=== PATIENT | male | born 1955 | race Caucasian/White ===

== ENCOUNTER → 2018-01-26 06:32 | Outpatient (CLI) | payer OTHER, SELFPAY ==
[2018-01-26 07:21] LABS: Absolute Neutrophil Count 3.6 X10^3/uL (2.0-7.7); Basophil# 0.03 X10^3/uL; Basophil% 0.5 % (0-1); Eosinophil# 0.22 X10^3/uL; Hematocrit 41.8 % (40-54); Hemoglobin 14.1 g/dl (13.0-16.5); Lymphocyte % 20.1 % (19-41); Mean Corp Hgb Conc 33.7 g/gl (32-36); Mean Corpuscular Hgb 31.6 pg (27.0-32.0); Mean Corpuscular Volume 93.7 fL (80-94); Monocyte# 0.56 X10^3/uL; Monocyte% 10.2 % (0-10); Neutrophil # 3.55 X10^3/uL (2.7-7.7); Platelet Count 212 K/mm3 (150-450); RBC Distribution Width CV 13.3 % (11.6-14.6); RBC Distribution Width SD 44.1 fl (35.1-43.9); Red Blood Count 4.46 M/mm3 (4.6-6.2); White Blood Count 5.5 K/mm3 (4.4-11.0)
[2018-01-26 07:23] LABS: POSITIVE COUNT NO; POSITIVE DIFFERENTIAL NO; POSITIVE MORPHOLOGY NO
[2018-01-26 07:45] LABS: Hemoglobin A1c 5.6 % (4.2-6.3)
[2018-01-26 08:00] LABS: AST(SGOT) 35 U/L (15-37); Alanine Aminotransfer ALT/SGPT 50 U/L (16-61); Albumin, Serum 3.7 g/dL (3.2-5.0); Alkaline Phosphatase 40 U/L (45-117); Anion Gap 8 (5-15); BUN 17 mg/dL (7-18); BUN/Creat Ratio 17.8 RATIO (10-20); Chloride 103 mmol/L (98-107); Cholesterol 192 mg/dL (200); Creatinine, Serum 0.96 mg/dL (0.70-1.30); EST Glomerular Filtration Rate 85 mL/min (>60); Est Glom Filt Rate - Afr Amer 103 mL/min (>60); Globulin 3.6 g/dL (2.2-4.2); Glucose 118 mg/dL (74-106); High Density Lipoprotein 45 mg/dL; Magnesium 2.4 mg/dL (1.6-2.6); Potassium 4.5 mmol/L (3.5-5.1); Protein, Total 7.3 g/dL (6.4-8.2); Sodium Level 141 mmol/L (136-145); Thyroid Stim Hormone (TSH) 3.65 uIU/mL (0.358-3.74); Triglycerides 251 mg/dL; Very Low Density Lipoprotein 50 mg/dL (5-40)
== END ==
PROVIDERS: Family Provider Family Medicine; PCP Family Medicine; Visit Provider Family Medicine
DX: R53.83 Other fatigue (principal); M79.7 Fibromyalgia; G43.109 Migraine with aura, not intractable, without status migrainosus; R73.9 Hyperglycemia, unspecified
CPT/HCPCS: 36415; 80053; 80061; 83036; 83735; 84403; 84443; 85025

== ENCOUNTER 2018-07-03 08:26 | Day surgery (SDC) | payer OTHER, SELFPAY ==
[2018-07-03] VITALS (7 sets, daily range): BP systolic 93–118; BP diastolic 63–76; PULSE 65–99; RESP 16; TEMP 36.4–36.8; O2SAT 92–98; BMI 27.7
[2018-07-03] MEDS: MethylPREDNISolone Acetate 80 MG/ML Vial (09:48)
[2018-07-03] MEDS: Bupivacaine 0.25% 30 ML Vial (09:49)
--- NOTE | 2018-07-03 09:50 | RAD_ITS ---
STUDY: Fluoroscopic intraoperative study- CERVICAL SPINE REASON FOR EXAM: Male, 63 years old. Fluoroscopic intraoperative study cervical spine TECHNIQUE: Fluoroscopic view(s) of the cervical spine were obtained. COMPARISON: None FINDINGS: 4 fluoroscopic images were obtained with needle markers along the left side of the cervical spine. RAD/Cerv Spine 4 or 5 Views IMPRESSION: Intraoperative fluoroscopic imaging. Fluoroscopy time used was not provided. Electronically Signed: Hamida Burgos MD at 2:30 EST Tel , Service support ,
--- NOTE | 2018-07-03 10:01 | PCM.OPRPT ---
Problem List (1) Arthropathy of cervical facet joint Status: Chronic (2) Cervical spondylosis Status: Chronic (3) Degenerative cervical disc Status: Chronic Report of Operation Date of Procedure: 07/03/18 Pre-Operative Diagnosis: Cervical spondylosis, cervical degenerative disc disease, cervical facet arthropathy Post-Operative Diagnosis: Cervical spondylosis, cervical degenerative disc disease, cervical facet arthropathy Surgery/Procedure Performed:: Right-sided cervical facet steroid injection C4, C5, C6,C7 Description of Surgical Findings:: PROCEDURE: Right-sided cervical facet steroid injection C4, C5, C6, C7 PREOPERATIVE DIAGNOSES: Cervical spondylosis, cervical degenerative disc disease, and cervical facet arthropathy POSTOPERATIVE DIAGNOSES: Cervical spondylosis, cervical degenerative disc disease, and cervical facet arthropathy ANESTHESIA: MAC COMPLICATIONS: None BLOOD LOSS: Minimal PROCEDURE IN DETAIL: History and physical today was reviewed. Risks and benefits of the procedure were explained. The patient understood, agreed to our procedure, and informed consent was obtained. IV inserted per routine protocol. The patient was taken to the operating room, placed in a prone position with a pillow positioned underneath the chest. The neck area was prepped and draped in a sterile fashion using iodine x3. Under fluoroscopy guidance, on AP view, C4 through C7 vertebral bodies were visualized. Under direct visualization with fluoroscopy at approximately 15-degree angle, starting on the right C4, ending on the right C7, passing through the C5-C6 using a 25-gauge 3-1/2 inch spinal needle, the needle was passed through the skin. The tip of the needle was maneuvered and directed towards the apophyseal junction of each corresponding vertebra. Once the tip of the needle was at the vicinity of the medial branch and in contact with the bone, the needle was redirected more lateral towards the medial branch. Once in contact with the medial branch, the stylet of each needle was then removed. After negative aspiration of blood with CSF and confirmation of AP as well as oblique view, a total of 3 mL of preservative-free 0.25% Marcaine with 80 mg Depo-Medrol was injected in divided doses between those 4 levels. The needles were then removed intact. The patient experienced no signs or symptoms of intrathecal, intravascular injection. The patient experienced no paraesthesia. The procedure was completed without any apparent difficulty, any complication. The patient appeared to tolerate well. ASSESSMENT AND PLAN: This is a 63-year-old Male with cervical spondylosis, cervical degenerative disc disease, and cervical facet arthropathy, status post right-sided cervical facet steroid injection C4 through C7. The patient will continue his current medications. The patient will follow up in approximately 2 weeks fo reevaluation.
== END 2018-07-03 10:40 | disposition home or self-care (01) ==
LOC: SDC 08:26 → AC 08:29
PROVIDERS: Family Provider Family Medicine; PCP Family Medicine; Referring Provider Anesthesiology Pain Medicine; Visit Provider Anesthesiology Pain Medicine
PROC: 3E0U3BZ Introduction of Anesthetic Agent into Joints, Percutaneous Approach (ICD-10-PCS; CPT 64490; principal; 2018-07-03 09:45)
DX: M50.10 Cervical disc disorder with radiculopathy, unspecified cervical region (principal); M47.22 Other spondylosis with radiculopathy, cervical region; F41.9 Anxiety disorder, unspecified; I34.1 Nonrheumatic mitral (valve) prolapse; Z79.82 Long term (current) use of aspirin; Z79.899 Other long term (current) drug therapy
CPT/HCPCS: 64490; 64491; 64492; 72050; J7120

== ENCOUNTER → 2018-10-30 | Outpatient (CLI) | payer OTHER, SELFPAY ==
[2018-07-03 09:02] VITALS: BMI 27.7
[2018-10-30 08:17] LABS: Cholesterol 165 mg/dL (200); High Density Lipoprotein 43 mg/dL; Triglycerides 188 mg/dL; Very Low Density Lipoprotein 38 mg/dL (5-40)
[2018-10-30 11:54] LABS: Hemoglobin A1c 5.6 % (4.2-6.3)
== END | disposition home or self-care (01) ==
LOC: LAB.FUTURE 06:55
PROVIDERS: Family Provider Family Medicine; PCP Family Medicine; Referring Provider Physician Assistant; Visit Provider Physician Assistant
DX: E78.1 Pure hyperglyceridemia (principal); R73.9 Hyperglycemia, unspecified
CPT/HCPCS: 36415; 80061; 83036

== ENCOUNTER → 2019-03-02 | Outpatient (CLI) | payer OTHER, SELFPAY ==
[2018-07-03 09:02] VITALS: BMI 27.7
--- NOTE | 2019-03-02 10:46 | ECHOD_ITS ---
Reason For Study: s/p MV Repair Procedure This was a 2D Doppler, Color Flow transthoracic echocardiogram. The exam was of adequate technical quality. Exam performed in department. Left Ventricle Severely dilated left ventricle. D shaped septum in systole and diastole. Moderately severe global left ventricular systolic dysfunction. The estimated ejection fraction is 35 %. Unable to assess diastolic dysfunction. Right Ventricle Mildly dilated right ventricle. Mild global right ventricular systolic dysfunction. Atria The left atrium is severely enlarged. The right atrium is mildly enlarged. No doppler evidence for ASD. Mitral Valve Anterior leaflet diffuse mitral valve thickening. Mitral valve doming/Hockey Sticking. Moderate (2+) eccentric mitral valve insufficiency. An annuloplasty ring is noted in the mitral position. Tricuspid Valve Normal tricuspid valve. Mild to moderate (1-2+) eccentric tricuspid valve insufficiency. Right ventricular systolic pressure estimated to be 51 mmHg. Aortic Valve Trisinus/trileaflet aortic valve. Normal aortic valve. Mild (1+) aortic valve insufficiency. Pulmonic Valve The pulmonic valve is not well visualized. Trivial pulmonic valve insufficiency. Great Vessels Normal sized aortic root. Pericardium/Pleural No pericardial effusion. MMode/2D Measurements & Calculations LVIDd: 7.3 cm IVSd: 1.0 cm Ao root diam: 3.6 cm LVIDs: 6.1 cm LVPWd: 1.2 cm LA dimension: 6.2 cm RVDd: 4.7 cm FS: 16.0 % LAV(MOD-bp): 175.1 ml LVAd ap4: 45.5 cm2 SV(MOD-sp4): 72.6 ml LAV(MOD-bp) Indexed: 84.9 ml/m2 EDV(MOD-sp4): 202.8 ml LAV(MOD-sp2): 183.0 ml EDV(sp4-el): 212.6 ml LAV(MOD-sp4): 164.4 ml LVAs ap4: 34.6 cm2 ESV(MOD-sp4): 130.2 ml ESV(sp4-el): 133.2 ml EF(MOD-sp4): 35.8 % EF(sp4-el): 37.3 % SV(sp4-el): 79.3 ml LA A4 area: 39.6 cm2 RA A4 area: 22.4 cm2 Doppler Measurements & Calculations MV E max jeet: 172.4 cm/sec MV V2 max: 240.4 cm/sec MV P1/2t max jeet: 240.4 cm/sec MV max P.1 mmHg MV P1/2t: 65.7 msec MV V2 mean: 134.5 cm/sec MV mean P.8 mmHg MV dec slope: 1072 cm/sec2 MV V2 VTI: 45.8 cm MVA(P1/2t): 3.3 cm2 Ao V2 max: 113.6 cm/sec AI max jeet: 414.0 cm/sec LV V1 max: 108.4 cm/sec Ao max P.2 mmHg AI max P.7 mmHg LV V1 max P.7 mmHg AI dec slope: 221.0 cm/sec2 AI P1/2t: 548.7 msec MR max jeet: 403.2 cm/sec PA V2 max: 93.6 cm/sec TR max jeet: 326.7 cm/sec MR max P.0 mmHg TR max P.7 mmHg MR mean jeet: 324.0 cm/sec MR mean P.9 mmHg MR VTI: 109.2 cm Interpretation Summary Severely dilated left ventricle. D shaped septum in systole and diastole. Moderately severe global left ventricular systolic dysfunction. The estimated ejection fraction is 35 %. Mildly dilated right ventricle. Mild global right ventricular systolic dysfunction. The left atrium is severely enlarged. The right atrium is mildly enlarged. An annuloplasty ring is noted in the mitral position. Anterior leaflet diffuse mitral valve thickening. Mitral valve doming/Hockey Sticking Moderate (2+) eccentric mitral valve insufficiency. Mild to moderate (1-2+) eccentric tricuspid valve insufficiency. Mild (1+) aortic valve insufficiency. Trivial pulmonic valve insufficiency. Right ventricular systolic pressure estimated to be 51 mmHg. Unable to assess diastolic dysfunction. Ordering Physician: SAUD TARIQ Referring Physician: Wei Scruggs Performed By: Carlos Eduardo Childers RCS
== END | disposition home or self-care (01) ==
LOC: CVS 10:44
PROVIDERS: Family Provider Family Medicine; PCP Family Medicine
DX: Z98.890 Other specified postprocedural states (principal)
CPT/HCPCS: 93306

== ENCOUNTER → 2019-07-14 07:04 | Outpatient (CLI) | payer OTHER, SELFPAY ==
[2018-07-03 09:02] VITALS: BMI 27.7
[2019-07-14 08:05] LABS: ALB/GLOB Ratio 1.1 RATIO (0.9-2.4); AST(SGOT) 33 U/L (15-37); Alanine Aminotransfer ALT/SGPT 44 U/L (16-61); Albumin, Serum 3.9 g/dL (3.2-5.0); Alkaline Phosphatase 35 U/L (45-117); Anion Gap 5 (5-15); BUN 16 mg/dL (7-18); BUN/Creat Ratio 17.2 RATIO (10-20); Calcium,Total 8.8 mg/dL (8.5-10.1); Chloride 106 mmol/L (98-107); Cholesterol 174 mg/dL (200); Creatinine, Serum 0.93 mg/dL (0.70-1.30); EST Glomerular Filtration Rate 88 mL/min (>60); Est Glom Filt Rate - Afr Amer 106 mL/min (>60); Globulin 3.6 g/dL (2.2-4.2); Glucose 115 mg/dL (74-106); High Density Lipoprotein 44 mg/dL; Potassium 4.4 mmol/L (3.5-5.1); Protein, Total 7.5 g/dL (6.4-8.2); Sodium Level 140 mmol/L (136-145); Triglycerides 136 mg/dL; Very Low Density Lipoprotein 27 mg/dL (5-40)
[2019-07-14 08:58] LABS: Hemoglobin A1c 5.5 % (4.2-6.3)
== END ==
PROVIDERS: PCP Family Medicine; Referring Provider Physician Assistant; Visit Provider Physician Assistant
DX: E78.1 Pure hyperglyceridemia (principal); I50.22 Chronic systolic (congestive) heart failure; R73.9 Hyperglycemia, unspecified; Z79.899 Other long term (current) drug therapy
CPT/HCPCS: 36415; 80053; 80061; 83036; 83880

== ENCOUNTER → 2020-11-05 07:08 | Outpatient (CLI) | payer OTHER, SELFPAY ==
[2018-07-03 09:02] VITALS: BMI 27.7
[2020-11-05 08:24] LABS: Absolute Lymphocyte Count 1.12 X10^3/uL (0.83-4.51); Absolute Neutrophil Count 3.1 X10^3/uL (2.0-7.7); Basophil# 0.05 X10^3/uL; Eosinophil# 0.29 X10^3/uL; Eosinophils% 5.7 % (0-5); Hematocrit 44.2 % (40-54); Hemoglobin 14.9 g/dL (13.0-16.5); Lymphocyte # 1.12 X10^3/ul (0.83-4.51); Lymphocyte % 22.2 % (19-41); Mean Corp Hgb Conc 33.7 g/dL (32-36); Mean Corpuscular Hgb 31.6 pg (27.0-32.0); Mean Corpuscular Volume 93.6 fL (80-94); Mean Platelet Vol. 9.8 fl (6.2-12.0); Monocyte% 9.9 % (0-10); NRBC Flagged by Analyzer 0 % (0-5); Neutrophil # 3.07 X10^3/uL (2.7-7.7); Neutrophil % 60.8 % (47-70); Platelet Count 251 K/mm3 (150-450); RBC Distribution Width CV 12.7 % (11.6-14.6); RBC Distribution Width SD 43.6 fl (35.1-43.9); Red Blood Count 4.72 M/mm3 (4.6-6.2); White Blood Count 5.1 K/mm3 (4.4-11.0)
[2020-11-05 08:43] LABS: Hemoglobin A1c 5.5 % (3.8-5.6)
[2020-11-05 09:18] LABS: ALB/GLOB Ratio 1.1 RATIO (0.9-2.4); AST(SGOT) 33 U/L (15-37); Alanine Aminotransfer ALT/SGPT 60 U/L (16-61); Albumin, Serum 3.9 g/dL (3.2-5.0); Alkaline Phosphatase 46 U/L (45-117); Anion Gap 4 (5-15); BUN 16 mg/dL (7-18); BUN/Creat Ratio 19.7 RATIO (10-20); Chloride 105 mmol/L (98-107); Cholesterol 194 mg/dL (200); Creatinine, Serum 0.81 mg/dL (0.70-1.30); EST Glomerular Filtration Rate 102 mL/min (>60); Est Glom Filt Rate - Afr Amer 123 mL/min (>60); Globulin 3.5 g/dL (2.2-4.2); Glucose 106 mg/dL (74-106); High Density Lipoprotein 47 mg/dL; Magnesium 2.6 mg/dL (1.6-2.6); Protein, Total 7.4 g/dL (6.4-8.2); Sodium Level 138 mmol/L (136-145); Triglycerides 189 mg/dL; Very Low Density Lipoprotein 38 mg/dL (5-40)
== END ==
PROVIDERS: PCP Family Medicine; Referring Provider Physician Assistant; Visit Provider Physician Assistant
DX: I42.0 Dilated cardiomyopathy (principal); T82.03XD Leakage of heart valve prosthesis, subsequent encounter; R73.9 Hyperglycemia, unspecified; R78.1 Finding of opiate drug in blood; I50.22 Chronic systolic (congestive) heart failure; Z79.899 Other long term (current) drug therapy
CPT/HCPCS: 36415; 80053; 80061; 83036; 83735; 85025

== ENCOUNTER → 2021-01-01 07:47 | Outpatient (CLI) | payer OTHER, SELFPAY ==
[2018-07-03 09:02] VITALS: BMI 27.7
--- NOTE | 2021-01-01 08:11 | RAD_ITS ---
STUDY: X-RAY - LEFT ANKLE REASON FOR EXAM: Male, 65 years old. Ankle pain. TECHNIQUE: 3 view(s) of the ankle. COMPARISON: None. FINDINGS: Osteopenia. Mild arthrosis of the tibiotalar and subtalar joints. Mild arthrosis of the midfoot. The soft tissue structures are unremarkable. RAD/Ankle min 3 Views IMPRESSION: Osteopenia with mild osteoarthritic changes. No acute abnormality, erosive changes or periostitis. Electronically Signed: Irineo Frank MD at 13:13 EDT , Service support ,
--- NOTE | 2021-01-01 08:12 | RAD_ITS ---
STUDY: X-RAY - LEFT FOOT CLINICAL: Male, 65 years old. Foot pain. TECHNIQUE: 3 view(s) of the foot. COMPARISON: None. FINDINGS: Osteopenia. Mild arthrosis of the tibiotalar and subtalar joints. Mild arthrosis of the midfoot. Mild arthrosis of the MTP and IV joints. The soft tissue structures are unremarkable. RAD/Foot min 3 Views IMPRESSION: Osteopenia with osteoarthritic changes as described. No acute abnormality, erosive changes or periostitis. Electronically Signed: Irineo Frank MD at 13:12 EDT , Service support ,
--- NOTE | 2021-01-01 08:12 | RAD_ITS ---
STUDY: X-RAY - LUMBOSACRAL SPINE REASON FOR EXAM: Male, 65 years old. Back pain. TECHNIQUE: 7 view(s) of the lumbosacral spine including bending views were obtained. COMPARISON: None FINDINGS: Osteopenia. Normal lumbar lordosis. There is no substantial scoliosis. There is normal alignment of the vertebrae. 7 mm of anterolisthesis of L4 on L5. Limited flexion, normal extension and no abnormal motion. Diffuse facet sclerosis. Diffuse mild intervertebral disc space narrowing with small osteophytes at L3-4 and L5-S1. Osteoarthrosis of the sacroiliac joints. Normal visualized soft tissue structures. RAD/L/S Spine Comp/w Bending Views IMPRESSION: Osteopenia with mild diffuse lumbar spondylosis. No acute abnormality, evidence of erosive changes or evidence of fusion. Electronically Signed: Irineo Frank MD at 14:02 EDT , Service support ,
[2021-01-01 09:26] LABS: Erythrocyte Sedimentation Rate 17 mm/hr (0-20)
[2021-01-01 09:28] LABS: Absolute Lymphocyte Count 0.83 X10^3/uL (0.83-4.51); Absolute Neutrophil Count 7.4 X10^3/uL (2.0-7.7); Basophil# 0.05 X10^3/uL; Basophil% 0.5 % (0-1); Eosinophil# 0.22 X10^3/uL; Eosinophils% 2.4 % (0-5); Hematocrit 41.3 % (40-54); Hemoglobin 13.4 g/dL (13.0-16.5); Lymphocyte # 0.83 X10^3/ul (0.83-4.51); Lymphocyte % 9.1 % (19-41); Mean Corp Hgb Conc 32.4 g/dL (32-36); Mean Corpuscular Hgb 30.2 pg (27.0-32.0); Mean Corpuscular Volume 93.2 fL (80-94); Mean Platelet Vol. 9.6 fl (6.2-12.0); Monocyte# 0.55 X10^3/uL; NRBC Flagged by Analyzer 0 % (0-5); Neutrophil # 7.44 X10^3/uL (2.7-7.7); Neutrophil % 81.2 % (47-70); Platelet Count 367 K/mm3 (150-450); RBC Distribution Width CV 12.5 % (11.6-14.6); RBC Distribution Width SD 43.3 fl (35.1-43.9); Red Blood Count 4.43 M/mm3 (4.6-6.2); White Blood Count 9.2 K/mm3 (4.4-11.0)
[2021-01-01 09:50] LABS: ALB/GLOB Ratio 0.8 RATIO (0.9-2.4); AST(SGOT) 16 U/L (15-37); Alanine Aminotransfer ALT/SGPT 26 U/L (16-61); Albumin, Serum 3.4 g/dL (3.2-5.0); Alkaline Phosphatase 56 U/L (45-117); Anion Gap 8 (5-15); BUN 12 mg/dL (7-18); BUN/Creat Ratio 17.5 RATIO (10-20); Calcium,Total 8.4 mg/dL (8.5-10.1); Chloride 104 mmol/L (98-107); Creatinine, Serum 0.69 mg/dL (0.70-1.30); EST Glomerular Filtration Rate 124 mL/min (>60); Est Glom Filt Rate - Afr Amer 150 mL/min (>60); Globulin 4.4 g/dL (2.2-4.2); Glucose 104 mg/dL (74-106); Potassium 4.2 mmol/L (3.5-5.1); Protein, Total 7.8 g/dL (6.4-8.2); Rheumatoid Factor < 10.0 IU/mL (<15); Sodium Level 137 mmol/L (136-145); Thyroid Stim Hormone (TSH) 2.54 uIU/mL (0.358-3.74); Uric Acid 5.4 mg/dL (3.5-7.2)
== END ==
LOC: RAD.FUTURE 07:53 → LAB 07:57
PROVIDERS: PCP Family Medicine; Referring Provider Student in an Organized Health Care Education/Training Program; Visit Provider Student in an Organized Health Care Education/Training Program
DX: M79.672 Pain in left foot (principal); R22.42 Localized swelling, mass and lump, left lower limb
CPT/HCPCS: 36415; 72114; 73610; 73630; 80053; 84443; 84550; 85025; 85652; 86140; 86431

== ENCOUNTER 2021-01-21 08:00 | Outpatient (RCR) | payer OTHER, SELFPAY ==
[2018-07-03 09:02] VITALS: BMI 27.7
--- NOTE | 2021-01-06 15:16 | HP.PTEVAL ---
Patient's Visit Information RADHA IBRAHIM is a 65 year old M referred to Physical Therapy by Dr. Mauro Vargas MD with a diagnosis of CHRONIC BACK PAIN. Date of Evaluation: 01/06/21 Physical Therapist: Bird Bosch PT, Cert MDT, OCS - Visit Plan Frequency: 2x /Week Duration: 4 Weeks Plan: PRECAUTION: CABG VALVE REPLACEMENT SURGERY AND RECONSTRUCTION. PT INERVETION DLS ,POSTURAL EX'S AND LUMBAR ROM AND FUNCTIONAL STRENGTHENING - Subjective This 65 y/o male presents alexx physical therapy with chronic back pain. Patient has had lumbar pain right leg foot with paresthesia in November ~ 6weeks then symptoms started in left leg. But ,currently pain has getting better .Seen DR Juarez did x-rays DDD . Patient not taking any MEDs. Patient has h/o sciatica . Aggravating factors increase activity . Alleviating factors rest. Patient has comorbities with CABAG valve repair ,2003 and this past Mar 04 2020 replaced valve . Denies paresthesia/tingling has resolved . Coughing/sneezing -.Bowel/bladder-. Sleeping better at night. VOCATION: retired. SOCIAL: - Objective POSTURE: mild forward posture. GAIT: reciprocal pattern. SYMMTRIES: align. PALAPTION: unremarkable. MMT: quads/hams/hip 4/5,ankle 5/5. LUMBR ROM: flexion WFL, extension min loss, side glides min loss. FLEXABLITY: hams min tight - Special Tests L/S Slump test left side: Negative L/S Slump test right side: Negative L/S Left Straight Leg Raise: Negative L/S Right Straight Leg Raise: Negative Lumbar Standing: Flexion - Mechanical Response: No effect Lumbar Standing: Flexion - Symptoms During Testing: No effect Lumbar Standing: Flexion - Symptoms After Testing: No effect Lumbar Standing: Extension - Mechanical Response: No effect Lumbar Standing: Extension - Symptoms During Testing: No effect Lumbar Standing: Extension - Symptoms After Testing: No effect Lumbar Standing: Right Side Glides - Mechanical Response: No effect Lumbar Standing: Right Side [place] - Symptoms During Testing: No effect Lumbar Standing: Right Side [place] - Symptoms After Testing: No effect Lumbar Standing: Left Side [place] - Mechanical Response: No effect Lumbar Standing: Left Side [place] - Symptoms During Testing: No effect Lumbar Standing: Left Side [place] - Symptoms After Testing: No effect - Balance/Special Test Scores Oswestry Low Back Score: 8 - Goals Goal 1:: I with HEP Goal Time Frame: 4-6 Weeks Goal 2:: Improve posture/body mechanics for ADLS' Goal Time Frame: 4-6 Weeks Goal 3:: Decrease lumbar pain by 80% or > to improve QOL and function Goal Time Frame: 4-6 Weeks Goal 4:: Patient improve lumbar ROM for function of recovery Goal Time Frame: 4-6 Weeks Goal 5:: Patient improve back owestry score by 5 points or > to improve function Goal Time Frame: 4-6 Weeks - Rehabilitation Potential Physical Therapy Diagnosis: This patient had lumbar pain with symptoms in legs which has been resolving along with core weakness and deconditioned along with comorbties with heart thus will benefit skilled PT Rehabilitation Potential: Good - Anticipated Interventions Patient/Client Instruction: Educate patient on: Condition, Plan of Care For the Purpose of:: To decrease pain, To increase ROM, To improve muscle performance and motor function, To improve ability to perform ADL's, To increase tolerance to activity/condition/position, To improve performance and independence with ADL's, To improve ability of physical actions for home/community/work/leisure, To improve health of tissue, To decrease soft tissue restriction, To increase flexibility/ROM, To reduce risk of recurrence Therapeutic Exercise to Include: Strength training, Coordination, Postural training, Flexibilty training, Active ROM, Dynamic Lumbar Stabilization For the Purpose of:: To decrease pain, To improve muscle performance and motor function, To improve ability to perform ADL's, To increase tolerance to activity/condition/position, To improve performance and independence with ADL's, To improve ability of physical actions for home/community/work/leisure, To increase flexibility/ROM, To reduce risk of recurrence Thank you for the opportunity to evaluate your patient. For Medicare and Medicare HMO plans, please review the plan of care and approve it. It will need to be FAXED BACK to us at [phone] for Medicare purposes. For Medicare only, by signing this I certify the plan of care. Please let me know if there are questions or concerns regarding this plan of care. Physician Signature: Date:
--- NOTE | 2021-03-09 16:56 | HP.PTDCSUM ---
It has been my pleasure to treat RADHA IBRAHIM referred by Dr. Mauro Vargas MD, with the diagnosis of CHRONIC BACK PAIN for a total of 3 visit(s). Discharge Date: 01/21/21 Please see the following information for a summary of their discharge status. Subjective: Doing well no pain % Improvement: 80 Objective/Function: POSTURE: WFL. GAIT: RECIPROCAL PATTERN. PALAPTION: UNREMARBALE. MMT: 5/5. LUMBAR ROM : WNL Goal 1:: I with HEP Goal Progress: Goal Met Goal 2:: Improve posture/body mechanics for ADLS' Goal Progress: Goal Met Goal 3:: Decrease lumbar pain by 80% or > to improve QOL and function Goal Progress: Goal Met Goal 4:: Patient improve lumbar ROM for function of recovery Goal Progress: Goal Met Goal 5:: Patient improve back owestry score by 5 points or > to improve function Goal Progress: Goal Met Plan: D/C Discharge Comments: HEP If there are questions or concerns regarding this patient's physical therapy, please feel free to call me at [phone]. Thank you for the referral of this patient. Sincerely, Bird Bosch, PT, Cert MDT, OCS Balance/Gait/Functional tests - Balance/Special Test Scores Oswestry Low Back Score: 0
== END 2021-01-21 19:00 | disposition home or self-care (01) ==
LOC: PT 08:00
PROVIDERS: PCP Family Medicine; Referring Provider Anesthesiology Pain Medicine; Visit Provider Anesthesiology Pain Medicine
DX: M54.9 Dorsalgia, unspecified (principal); G89.29 Other chronic pain
CPT/HCPCS: 97110; 97162

== ENCOUNTER → 2021-02-09 07:05 | Outpatient (CLI) | payer OTHER, SELFPAY ==
[2021-02-09 07:25] LABS: Absolute Lymphocyte Count 0.75 X10^3/uL (0.83-4.51); Absolute Neutrophil Count 7.8 X10^3/uL (2.0-7.7); Basophil# 0.05 X10^3/uL; Basophil% 0.5 % (0-1); Eosinophil# 0.28 X10^3/uL; Eosinophils% 2.9 % (0-5); Hematocrit 41.9 % (40-54); Hemoglobin 13.4 g/dL (13.0-16.5); Lymphocyte # 0.75 X10^3/ul (0.83-4.51); Lymphocyte % 7.9 % (19-41); Mean Corpuscular Hgb 30.3 pg (27.0-32.0); Mean Corpuscular Volume 94.8 fL (80-94); Mean Platelet Vol. 9.2 fl (6.2-12.0); Monocyte# 0.61 X10^3/uL; Monocyte% 6.4 % (0-10); NRBC Flagged by Analyzer 0 % (0-5); Neutrophil # 7.78 X10^3/uL (2.7-7.7); Neutrophil % 81.9 % (47-70); Platelet Count 301 K/mm3 (150-450); RBC Distribution Width CV 13.6 % (11.6-14.6); Red Blood Count 4.42 M/mm3 (4.6-6.2); White Blood Count 9.5 K/mm3 (4.4-11.0)
[2021-02-09 08:08] LABS: ALB/GLOB Ratio 0.7 RATIO (0.9-2.4); AST(SGOT) 15 U/L (15-37); Alanine Aminotransfer ALT/SGPT 18 U/L (16-61); Alkaline Phosphatase 51 U/L (45-117); Anion Gap 6 (5-15); BUN 15 mg/dL (7-18); BUN/Creat Ratio 18.8 RATIO (10-20); CRP 7.24 mg/L (0.0-3.0); Calcium,Total 8.1 mg/dL (8.5-10.1); Chloride 106 mmol/L (98-107); EST Glomerular Filtration Rate 103 mL/min (>60); Est Glom Filt Rate - Afr Amer 125 mL/min (>60); Globulin 4.2 g/dL (2.2-4.2); Glucose 125 mg/dL (74-106); Potassium 4.3 mmol/L (3.5-5.1); Protein, Total 7.2 g/dL (6.4-8.2); Sodium Level 140 mmol/L (136-145)
== END ==
PROVIDERS: PCP Family Medicine; Referring Provider Student in an Organized Health Care Education/Training Program; Visit Provider Student in an Organized Health Care Education/Training Program
DX: E79.0 Hyperuricemia without signs of inflammatory arthritis and tophaceous disease (principal)
CPT/HCPCS: 36415; 80053; 84550; 85025; 86140

== ENCOUNTER → 2022-03-19 | Outpatient (CLI) | payer MEDICARE, BC, SELFPAY ==
[2022-03-19 07:55] LABS: Hematocrit 41.5 % (40-54); Hemoglobin 14.4 g/dL (13.0-16.5); Mean Corp Hgb Conc 34.7 g/dL (32-36); Mean Corpuscular Hgb 31.9 pg (27.0-32.0); Mean Corpuscular Volume 91.8 fL (80-94); Mean Platelet Vol. 9.4 fl (6.2-12.0); Platelet Count 244 K/mm3 (150-450); RBC Distribution Width CV 12.7 % (11.6-14.6); RBC Distribution Width SD 42.1 fl (35.1-43.9); Red Blood Count 4.52 M/mm3 (4.6-6.2)
[2022-03-19 08:29] LABS: ALB/GLOB Ratio 1.1 RATIO (0.9-2.4); AST(SGOT) 22 U/L (15-37); Alanine Aminotransfer ALT/SGPT 41 U/L (16-61); Albumin, Serum 3.9 g/dL (3.2-5.0); Alkaline Phosphatase 41 U/L (45-117); Anion Gap 6 (5-15); BUN 16 mg/dL (7-18); BUN/Creat Ratio 20.8 RATIO (10-20); Calcium,Total 9.3 mg/dL (8.5-10.1); Chloride 106 mmol/L (98-107); Cholesterol 192 mg/dL (200); Creatinine, Serum 0.77 mg/dL (0.70-1.30); EST Glomerular Filtration Rate 108 mL/min (>60); Est Glom Filt Rate - Afr Amer 131 mL/min (>60); Globulin 3.4 g/dL (2.2-4.2); Glucose 127 mg/dL (74-106); High Density Lipoprotein 50 mg/dL; Magnesium 2.5 mg/dL (1.6-2.6); Potassium 4.2 mmol/L (3.5-5.1); Protein, Total 7.3 g/dL (6.4-8.2); Sodium Level 139 mmol/L (136-145); Triglycerides 131 mg/dL; Uric Acid 6.4 mg/dL (3.5-7.2); Very Low Density Lipoprotein 26 mg/dL (5-40)
[2022-03-23 09:00] LABS: Hemoglobin A1c 5.6 % (3.8-5.6)
== END | disposition home or self-care (01) ==
LOC: LAB 07:27
PROVIDERS: PCP Family Medicine; Referring Provider Physician Assistant; Visit Provider Physician Assistant
DX: K21.9 Gastro-esophageal reflux disease without esophagitis (principal); I42.0 Dilated cardiomyopathy; I48.0 Paroxysmal atrial fibrillation; M79.675 Pain in left toe(s); E78.1 Pure hyperglyceridemia; R73.9 Hyperglycemia, unspecified; F41.1 Generalized anxiety disorder; Z79.899 Other long term (current) drug therapy
CPT/HCPCS: 36415; 80053; 80061; 83036; 83735; 84550; 85027

== ENCOUNTER → 2022-05-11 | Outpatient (CLI) | payer MEDICARE, BC, SELFPAY ==
[2022-05-11 07:47] LABS: Hemoglobin A1c 5.7 % (3.8-5.6)
[2022-05-11 07:56] LABS: CRP < 2.90 mg/L (0.0-3.0); PSA,Total - Annual Screen 1.65 ng/mL (0.00-4.00)
[2022-05-11 08:25] LABS: Insulin 15.4 mU/L (2.6-37.6)
[2022-05-12 11:58] LABS: C-Peptide 5.3 ng/mL (1.1-4.4)
== END | disposition home or self-care (01) ==
PROVIDERS: PCP Family Medicine; Referring Provider Physician Assistant; Visit Provider Physician Assistant
DX: Z12.5 Encounter for screening for malignant neoplasm of prostate (principal); E78.1 Pure hyperglyceridemia; R73.9 Hyperglycemia, unspecified
CPT/HCPCS: 36415; 83036; 83525; 84153; 84681; 86140; G0103

== ENCOUNTER → 2022-07-07 | Outpatient (CLI) | payer MEDICARE, BC, SELFPAY ==
--- NOTE | 2022-07-07 07:55 | RAD_ITS ---
STUDY: X-RAY - RIGHT WRIST REASON FOR EXAM: Male, 67 years old. Pain and swelling. TECHNIQUE: 3 view(s) of the wrist were obtained. COMPARISON: None. FINDINGS: Osteopenia. Mild arthrosis of the radiocarpal articulation. Mild arthrosis of the distal radioulnar articulation. Separate ossification center for the ulnar styloid versus remote trauma. Moderate arthrosis of the radial carpal row. Moderate arthrosis of the first CMC joint. The soft tissue structures are unremarkable. RAD/Wrist min 3 Views IMPRESSION: Osteopenia with osteoarthritic changes as described. No acute abnormality, chondrocalcinosis or erosive changes. Electronically Signed: Irineo Frank, at 10:12 EST ,
[2022-07-07 08:13] LABS: Erythrocyte Sedimentation Rate 4 mm/hr (0-20)
[2022-07-07 08:16] LABS: Absolute Lymphocyte Count 1.17 X10^3/uL (0.83-4.51); Absolute Neutrophil Count 4.2 X10^3/uL (2.0-7.7); Basophil# 0.05 X10^3/uL; Basophil% 0.8 % (0-1); Eosinophil# 0.29 X10^3/uL; Eosinophils% 4.7 % (0-5); Hematocrit 42.9 % (40-54); Hemoglobin 14.6 g/dL (13.0-16.5); Lymphocyte # 1.17 X10^3/ul (0.83-4.51); Lymphocyte % 18.8 % (19-41); Mean Corpuscular Hgb 31.5 pg (27.0-32.0); Mean Corpuscular Volume 92.7 fL (80-94); Mean Platelet Vol. 9.4 fl (6.2-12.0); Monocyte# 0.52 X10^3/uL; Monocyte% 8.4 % (0-10); NRBC Flagged by Analyzer 0 % (0-5); Neutrophil # 4.16 X10^3/uL (2.7-7.7); Neutrophil % 66.8 % (47-70); Platelet Count 248 K/mm3 (150-450); RBC Distribution Width CV 12.6 % (11.6-14.6); RBC Distribution Width SD 42.5 fl (35.1-43.9); Red Blood Count 4.63 M/mm3 (4.6-6.2); White Blood Count 6.2 K/mm3 (4.4-11.0)
[2022-07-07 09:08] LABS: CRP < 2.90 mg/L (0.0-3.0); Uric Acid 5.4 mg/dL (3.5-7.2)
== END | disposition home or self-care (01) ==
LOC: LAB 07:31
PROVIDERS: PCP Family Medicine; Referring Provider Student in an Organized Health Care Education/Training Program; Visit Provider Student in an Organized Health Care Education/Training Program
DX: M25.531 Pain in right wrist (principal); M25.431 Effusion, right wrist
CPT/HCPCS: 36415; 73110; 84550; 85025; 85652; 86140

== ENCOUNTER → 2022-08-06 | Outpatient (CLI) | payer MEDICARE, BC, SELFPAY ==
--- NOTE | 2022-08-06 13:34 | RAD_ITS ---
ACR Level 3 findings have been noted. An addendum which confirms receipt of the report will follow. INDICATION: PAIN EXAMINATION/TECHNIQUE: X-RAY - XR Spine Cervical 6 or More Views COMPARISON: None. FINDINGS: VERTEBRAE: Age indeterminate mild compression deformity of C6. 2 mm retrolisthesis C6 on C7. Preservation of the normal cervical lordosis. Moderate multilevel facet arthropathy. DISCS: Moderate multilevel degenerative disc disease and spondylosis. NECK SOFT TISSUES: No prevertebral soft tissue widening. LUNG APICES: Clear. RAD/Cerv Spine Obl/Flex/Ext Comp IMPRESSION: Age indeterminate mild compression deformity of C6 with grade 1 retrolisthesis C6 on C7. Electronically Signed: Blue Moran MD at 17:39 EDT ,
== END | disposition home or self-care (01) ==
LOC: RAD 13:24
PROVIDERS: PCP Family Medicine; Referring Provider Anesthesiology Pain Medicine; Visit Provider Anesthesiology Pain Medicine
DX: M50.30 Other cervical disc degeneration, unspecified cervical region (principal)
CPT/HCPCS: 72052

== ENCOUNTER → 2022-11-03 | Outpatient (CLI) | payer MEDICARE, BC, SELFPAY ==
[2022-11-03 10:44] LABS: Hepatitis B Surface Antibody Non-Reactive; Rubella IgG Reactive (Nonreactive)
[2022-11-04 05:07] LABS: Hepatitis A AB, Total Negative (Negative); Mumps Antibody,IgG 93.2 AU/mL (Immune >10.9); Rubeola IgG Ab 77.3 AU/mL (Immune >16.4)
== END | disposition home or self-care (01) ==
PROVIDERS: PCP Family Medicine; Referring Provider Family Medicine; Visit Provider Family Medicine
DX: Z11.59 Encounter for screening for other viral diseases (principal); Z11.4 Encounter for screening for human immunodeficiency virus [HIV]
CPT/HCPCS: 36415; 86706; 86708; 86735; 86762; 86765

== ENCOUNTER → 2023-06-23 | Outpatient (CLI) | payer MEDICARE, BC, SELFPAY ==
--- OUTSIDE RECORDS SUMMARY | 2023-06-23 20:03 | XMS RPT_ITS | CCD ---
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 denies recurrent sinus infection, unusual nasal drainage, hoarsemess, sore throat, or recurrent sore in mouth or tongue. Cardiovascular: see HPI Respiratory: denies unusual cough, SOB, wheezing, history of recurrent bronchitis, pneumonia or tuberculosis. Denies day time drowsiness. No Snoring. Declines DI work up, sleep apnea: none witnessed. GI: denies difficulty swallowing, nausea, vomiting, change in appetite. No change in bowel habits. Denies constipation, diarrhea, rectal bleeding or hemorrhoids, incontinence. No history of GERD, PUD, jaundice/hepatitis, GB disease, diverticulosis, colorectal cancer, hernias. Kidney/Bladder: urine flow: strong. No nocturia. Denies frequency, burning. No history of kidney stones, recurrent UTI or kidney infection. Skin: denies unusual rashes. No history of skin cancer, bleeding/changing moles, or unusual skin lesions. Neurologic: Denies recurrent GRUBER, change in vision, hearing or smell, tremors, unusual weakness, loss of sensation, or difficulty with balance or gait. No history of epilepsy/convulsions, migraine, head/spinal injuries, or stroke/TIA. Psychiatric: denies unusual worry, moodiness, depression, suicidal ideation or unusual disturbance in relationships. No history of psychiatric illness. Endocrine: denies unusual thirst, hunger, excessive urination, change in skin or hair texture, emotional lability. No history of thryoid, pituitary or hormonal problems. Hematologic: denies unusual bleeding, bruising, or history of anemia or blood transfusion. Denies hx blood clots. Infections: denies risk factors for HIV, hepatitis or history of unusual infection. Immunizations are up to date. Musculoskeletal: denies unusual stiffness, muscles aches, joint pain, or swelling. Denies recurrent sprain or disruption of joints, debilitating arthritis, gout, or other musculoskeletal disease. DDD lumbar, some pain issues. No back injury, spinal stenosis, radiculopathy. EXAM: BP 130/72 Pulse 65 Resp 16 Ht 177 cm (5' 9.69 ) Wt 87.1 kg (192 lb) SpO2 96% BMI 27.80 kg/m Pleasant overweight well appearing adult man in no acute distress. Alert and oriented all spheres. Normal affect and cognition. Speech normal. No deficits to learning or comprehension. Skin warm, dry, pink to lips and nailbeds. Normal turgor. Mild actinic damage on temples. Respirations regular and unlabored. HEENT: NCAT. No scleral icterus or conjunctival injection. TM's clear. Nose and oropharynx free from injection or lesion. Oral membranes moist and pink. No cervical lymph nodes. Thyroid non-tender, no masses, or enlargement. Carotids pulses 2+/4+ without bruits. No JVD with HOB at 30 degrees. Extrem: no clubbing or cyanosis. Edema: none. Extremities are warm and pink with prompt capillary refill. Feet:Shoes and socks removed, No deformities, ulcers, calluses, normal distal pulses, sensitive to 10 gm monofilament, and right pes planus, moderate ankle laxity to inversion. ASSESSMENT/PLAN: 1. Paroxysmal atrial fibrillation (HCC) - ICD9: 427.31, ICD10: I48.0 (primary diagnosis) Stable, - APIXABAN 5 MG TABLET - METOPROLOL SUCCINATE ER 25 MG TABLET,EXTENDED RELEASE 24 HR - OUTSIDE VENDOR CARDIAC OUTPATIENT EXTENDED RHYTHM RECORDING (WITHOUT TELEMETRY) 2. Dilated cardiomyopathy (HCC) - ICD9: 425.4, ICD10: I42.0 Following with cardiology - ENTRESTO 24 MG-26 MG TABLET - METOPROLOL SUCCINATE ER 25 MG TABLET,EXTENDED RELEASE 24 HR 3. Chronic systolic heart failure (HCC) - ICD9: 428.22, ICD10: I50.22 stable - METOPROLOL SUCCINATE ER 25 MG TABLET,EXTENDED RELEASE 24 HR 4. Prosthetic mitral valve regurgitation, subsequent encounter - ICD9: V58.89, 996.02, ICD10: T82.03XD stable 5. Hypertriglyceridemia - ICD9: 272.1, ICD10: E78.1 - suboptimal control - Encouraged following a low fat, low cholesterol diet. - Discussed the benefits of regular aerobic exercise and weight loss. - Encouraged following a low carbohydrate, healthy oil intake diet. - C-REACTIVE ULTRA SEN 6. Gastroesophageal reflux disease without esophagitis - ICD9: 530.81, ICD10: K21.9 - Discussed lifestyle modifications including losing weight, limiting caffeine, no meals three hours before sleep, and head of bed elevation 7. Current use of proton pump inhibitor - ICD9: V58.69, ICD10: Z79.899 Check Magnesium, taking supplements 8. Generalized anxiety disorder - ICD9: 300.02, ICD10: F41.1 Tolerating well. - SERTRALINE 50 MG TABLET 9. Elevated C-reactive protein (CRP) - ICD9: 790.95, ICD10: R79.82 Inflammatory incident with foot. No current sx. 10. Pain of toe of left foot - ICD9: 729.5, ICD10: M79.675 Chronic issues after exercise, suspect pes planus, bunionette. Consult podiatry 11. DI (obstructive sleep apnea) - ICD9: 327.23, ICD10: G47.33 Does not want tested. 12. Gouty arthritis of right foot - ICD9: 274.00, ICD10: M10.9 - CONSULT TO PODIATRY 13. Encounter for well adult exam without abnormal findings - ICD9: V70.0, ICD10: Z00.00 - Counseled on healthy diet and regular exercise - Discussed need for and benefit of weight loss. BMI 27.80 kg/(m^2) - Risks/benefits of prostate cancer screening discussed. screening PSA ordered - Counseled on limiting alcohol intake to 2 drinks per day 14. Hx of colonoscopy - ICD9: V45.89, ICD10: Z98.890 03/27/2010 Colonoscopy WNL Not interested in testing currently 15. Screening for prostate cancer - ICD9: V76.44, ICD10: Z12.5 - Counseled on healthy diet and regular exercise - Risks/benefits of prostate cancer screening discussed. screening PSA ordered - PSA/PROSTSPECAG SCRN 16. Elevated blood sugar - ICD9: 790.29, ICD10: R73.9 - HGB A1C Some of this note may have been copied and pasted for the purpose of history context and comparison. F/u 6 mo Basilia Davis PA-C documented in this encounter [facility] 02-24-2022 Miscellaneous Notes Form completed and given to Carlos Diehl so Dr. Sadler will sign and then fax. Louann Bull RN February 24, 2022 3:52 PM I received another fax in regards to this- I just wanted to check on the status. I have placed the fax in the nurse inbox. Carlos Received a patient asssistance form for EliMediSwipeis med for pt. Placed in the Nurses Inbox. Thank you. Carlos documented in this encounter [facility] 01-19-2022 Miscellaneous Notes Due for annual follow up/ med review: please schedule. Did not complete orders for lab work from 1 year ago. Get Medical Advice on 01/19/22 CBC COMP METABOLIC PANEL LIPID PANEL BASIC URIC ACID BLOOD MAGNESIUM BLD The following approved medication requests have been transmitted electronically. Requested Prescriptions Signed Prescriptions Disp Refills sertraline (ZOLOFT) 50 mg tablet 90 tablet 1 Sig: Take 1 tablet by mouth once daily. Basilia Davis PA-C Patient MyChart message requesting the following refill. Requested Prescriptions Pending Prescriptions Disp Refills sertraline (ZOLOFT) 50 mg tablet 90 tablet 3 Sig: Take 1 tablet by mouth once daily. Patient last appointment: 04/03/21 Patient Phone numbers: [phone] (home) Request is for script(s) to be escript to mail order Thanh. Leandra Levi documented in this encounter [facility] 01-15-2022 Miscellaneous Notes Call from pharmacy requesting refill. Requested Prescriptions Pending Prescriptions Disp Refills metoprolol succinate ER (TOPROL XL) 25 mg 24 hr tablet 90 tablet 3 Sig: Take 1 tablet by mouth once daily. sacubitril-valsartan (ENTRESTO) 24-26 mg tablet 180 tablet 3 Sig: TAKE 1 TABLET BY MOUTH TWICE DAILY. Patient last seen 04/16/21 Carlos Diehl documented in this encounter [facility] 12-12-2021 Miscellaneous Notes calling with questions on which pharmacy has Paxvloid in stock. denies any new or worsening symptoms of which a provider is not aware:Yes. Reason for call: Patient's states that patient got paxvloid ordered but their [facility] does not have it in stock. [facility] is currently checking to see if [facility] has medication [facility] stock. Spouse is wondering if other pharmacies have it Outcome: Advised patient to call [facility] to see if they have stock, also advised [facility] in [place] also carries medication. documented in this encounter [facility] documented as of this encounter (statuses as of 11/13/2021) [facility]10[facility]2020 History of Past illness Narrative* Problem Noted Date Resolved Date On mechanically assisted ventilation 03/03/2020 03/04/2020 Overview: Assessment: intubated and sedated from OR Plan: WTE Cardiac insufficiency 03/03/2020 03/04/2020 Overview: See care coordination note Postoperative hypotension 03/03/20202019 Overview: See care coordination note Pre-op testing 02/28/2020 03/06/2020 [facility] Surgeon: Marino Schwartz M.D. Informed Consent Completed: Yes STS Score: CAD: No Is intended procedure a CABG: No - is a beta best ordered? Yes H & P completed: Yes PA/LAT: Completed CT: Completed MRI: N/A LE US: N/A Cath: Yes - reviewed: Yes EKG: Completed Is patient on Amiodarone? No Echo:Completed EF %: 42 PI's: N/A Carotid: N/A Mapping: N/A Dental: Completed PFT's: Completed Recent Labs 02/27/20 0720 WBC 5.98 HB 14.4 HCT 43.2 PLT 230 INR 1.0 CREAT 0.86 UA: Normal HCG:N/A ABO/ABO Confirmed: Yes Blood ordered: Yes, redo Willing to accept blood: SA Swab: Yes - results: Pending Last Dose of Anticoagulation: Eliquis last dose 02/18/2020 Op Note: Yes, see epic Pacemaker Check: N/A Implants: no Consults: none DM: No Cardiac Surgical prep: N/A SIGNATURE: Jana Mccabe APRN.CNP DATE of SERVICE: 02/28/2020 TIME of SERVICE: 1:12 PM CHECKED BY: rob documented as of this encounter (statuses as of 12/12/2021) [facility] History of Past illness Narrative* Problem Noted Date Resolved Date On mechanically assisted ventilation 03/03/2020 03/04/2020 Overview: Assessment: intubated and sedated from OR Plan: WTE Cardiac insufficiency 03/03/2020 03/04/2020 Overview: See care coordination note Postoperative hypotension 03/03/20202019 Overview: See care coordination note Pre-op testing 02/28/2020 03/06/2020 [facility] Surgeon: Marino Schwartz M.D. Informed Consent Completed: Yes STS Score: CAD: No Is intended procedure a CABG: No - is a beta best ordered? Yes H & P completed: Yes PA/LAT: Completed CT: Completed MRI: N/A LE US: N/A Cath: Yes - reviewed: Yes EKG: Completed Is patient on Amiodarone? No Echo:Completed EF %: 42 PI's: N/A Carotid: N/A Mapping: N/A Dental: Completed PFT's: Completed Recent Labs 02/27/20 0720 WBC 5.98 HB 14.4 HCT 43.2 PLT 230 INR 1.0 CREAT 0.86 UA: Normal HCG:N/A ABO/ABO Confirmed: Yes Blood ordered: Yes, redo Willing to accept blood: SA Swab: Yes - results: Pending Last Dose of Anticoagulation: Eliquis last dose 02/18/2020 Op Note: Yes, see epic Pacemaker Check: N/A Implants: no Consults: none DM: No Cardiac Surgical prep: N/A SIGNATURE: Jana Mccabe APRN.CNP DATE of SERVICE: 02/28/2020 TIME of SERVICE: 1:12 PM CHECKED BY: rob documented as of this encounter (statuses as of 01/15/2022) [facility] History of Past illness Narrative* Problem Noted Date Resolved Date On mechanically assisted ventilation 03/03/2020 03/04/2020 Overview: Assessment: intubated and sedated from OR Plan: WTE Cardiac insufficiency 03/03/2020 03/04/2020 Overview: See care coordination note Postoperative hypotension 03/03/20202019 Overview: See care coordination note Pre-op testing 02/28/2020 03/06/2020 Overview[facility] Surgeon: Marino Schwartz M.D. Informed Consent Completed: Yes STS Score: CAD: No Is intended procedure a CABG: No - is a beta best ordered? Yes H & P completed: Yes PA/LAT: Completed CT: Completed MRI: N/A LE US: N/A Cath: Yes - reviewed: Yes EKG: Completed Is patient on Amiodarone? No Echo:Completed EF %: 42 PI's: N/A Carotid: N/A Mapping: N/A Dental: Completed PFT's: Completed Recent Labs 02/27/20 0720 WBC 5.98 HB 14.4 HCT 43.2 PLT 230 INR 1.0 CREAT 0.86 UA: Normal HCG:N/A ABO/ABO Confirmed: Yes Blood ordered: Yes, redo Willing to accept blood: SA Swab: Yes - results: Pending Last Dose of Anticoagulation: Eliquis last dose 02/18/2020 Op Note: Yes, see epic Pacemaker Check: N/A Implants: no Consults: none DM: No Cardiac Surgical prep: N/A SIGNATURE: Jana Mccabe APRN.CNP DATE of SERVICE: 02/28/2020 TIME of SERVICE: 1:12 PM CHECKED BY: rob documented as of this encounter (statuses as of 01/20/2022) [facility] History of Past illness Narrative* Problem Noted Date Resolved Date On mechanically assisted ventilation 03/03/2020 03/04/2020 Overview: Assessment: intubated and sedated from OR Plan: WTE Cardiac insufficiency 03/03/2020 03/04/2020 Overview: See care coordination note Postoperative hypotension 03/03/20202019 Overview: See care coordination note Pre-op testing 02/28/2020 03/06/2020 [facility] Surgeon: Marino Schwartz M.D. Informed Consent Completed: Yes STS Score: CAD: No Is intended procedure a CABG: No - is a beta best ordered? Yes H & P completed: Yes PA/LAT: Completed CT: Completed MRI: N/A LE US: N/A Cath: Yes - reviewed: Yes EKG: Completed Is patient on Amiodarone? No Echo:Completed EF %: 42 PI's: N/A Carotid: N/A Mapping: N/A Dental: Completed PFT's: Completed Recent Labs 02/27/20 0720 WBC 5.98 HB 14.4 HCT 43.2 PLT 230 INR 1.0 CREAT 0.86 UA: Normal HCG:N/A ABO/ABO Confirmed: Yes Blood ordered: Yes, redo Willing to accept blood: SA Swab: Yes - results: Pending Last Dose of Anticoagulation: Eliquis last dose 02/18/2020 Op Note: Yes, see epic Pacemaker Check: N/A Implants: no Consults: none DM: No Cardiac Surgical prep: N/A SIGNATURE: Jana Mccabe APRN.CNP DATE of SERVICE: 02/28/2020 TIME of SERVICE: 1:12 PM CHECKED BY: rob documented as of this encounter (statuses as of 01/29/2022) [facility] History of Past illness Narrative* Problem Noted Date Resolved Date On mechanically assisted ventilation 03/03/2020 03/04/2020 Overview: Assessment: intubated and sedated from OR Plan: WTE Cardiac insufficiency 03/03/2020 03/04/2020 Overview: See care coordination note Postoperative hypotension 03/03/20202019 Overview: See care coordination note Pre-op testing 02/28/2020 03/06/2020 Overview: [facility] Surgeon: Marino Schwartz M.D. Informed Consent Completed: Yes STS Score: CAD: No Is intended procedure a CABG: No - is a beta bset ordered? Yes H & P completed: Yes PA/LAT: Completed CT: Completed MRI: N/A LE US: N/A Cath: Yes - reviewed: Yes EKG: Completed Is patient on Amiodarone? No Echo:Completed EF %: 42 PI's: N/A Carotid: N/A Mapping: N/A Dental: Completed PFT's: Completed Recent Labs 02/27/20 0720 WBC 5.98 HB 14.4 HCT 43.2 PLT 230 INR 1.0 CREAT 0.86 UA: Normal HCG:N/A ABO/ABO Confirmed: Yes Blood ordered: Yes, redo Willing to accept blood: SA Swab: Yes - results: Pending Last Dose of Anticoagulation: Eliquis last dose 02/18/2020 Op Note: Yes, see epic Pacemaker Check: N/A Implants: no Consults: none DM: No Cardiac Surgical prep: N/A SIGNATURE: Jana Mccabe APRN.CNP DATE of SERVICE: 02/28/2020 TIME of SERVICE: 1:12 PM CHECKED BY: rob documented as of this encounter (statuses as of 02/24/2022) [facility] History of Past illness Narrative* Problem Noted Date Resolved Date On mechanically assisted ventilation 03/03/2020 03/04/2020 Overview: Assessment: intubated and sedated from OR Plan: WTE Cardiac insufficiency 03/03/2020 03/04/2020 Overview: See care coordination note Postoperative hypotension 03/03/20202019 Overview: See care coordination note Pre-op testing 02/28/2020 03/06/2020 Overview: [facility] Surgeon: Marino Schwartz M.D. Informed Consent Completed: Yes STS Score: CAD: No Is intended procedure a CABG: No - is a beta best ordered? Yes H & P completed: Yes PA/LAT: Completed CT: Completed MRI: N/A LE US: N/A Cath: Yes - reviewed: Yes EKG: Completed Is patient on Amiodarone? No Echo:Completed EF %: 42 PI's: N/A Carotid: N/A Mapping: N/A Dental: Completed PFT's: Completed Recent Labs 02/27/20 0720 WBC 5.98 HB 14.4 HCT 43.2 PLT 230 INR 1.0 CREAT 0.86 UA: Normal HCG:N/A ABO/ABO Confirmed: Yes Blood ordered: Yes, redo Willing to accept blood: SA Swab: Yes - results: Pending Last Dose of Anticoagulation: Eliquis last dose 02/18/2020 Op Note: Yes, see epic Pacemaker Check: N/A Implants: no Consults: none DM: No Cardiac Surgical prep: N/A SIGNATURE: Jana Mccabe APRN.CNP DATE of SERVICE: 02/28/2020 TIME of SERVICE: 1:12 PM CHECKED BY: rob documented as of this encounter (statuses as of 03/24/2022) [facility] History of Past illness Narrative* Problem Noted Date Resolved Date On mechanically assisted ventilation 03/03/2020 03/04/2020 Overview: Assessment: intubated and sedated from OR Plan: WTE Cardiac insufficiency 03/03/2020 03/04/2020 Overview: See care coordination note Postoperative hypotension 03/03/20202019 Overview: See care coordination note Pre-op testing 02/28/2020 03/06/2020 Overview: [facility] Surgeon: Marino Schwartz M.D. Informed Consent Completed: Yes STS Score: CAD: No Is intended procedure a CABG: No - is a beta best ordered? Yes H & P completed: Yes PA/LAT: Completed CT: Completed MRI: N/A LE US: N/A Cath: Yes - reviewed: Yes EKG: Completed Is patient on Amiodarone? No Echo:Completed EF %: 42 PI's: N/A Carotid: N/A Mapping: N/A Dental: Completed PFT's: Completed Recent Labs 02/27/20 0720 WBC 5.98 HB 14.4 HCT 43.2 PLT 230 INR 1.0 CREAT 0.86 UA: Normal HCG:N/A ABO/ABO Confirmed: Yes Blood ordered: Yes, redo Willing to accept blood: SA Swab: Yes - results: Pending Last Dose of Anticoagulation: Eliquis last dose 02/18/2020 Op Note: Yes, see epic Pacemaker Check: N/A Implants: no Consults: none DM: No Cardiac Surgical prep: N/A SIGNATURE: Jana Mccabe APRN.CNP DATE of SERVICE: 02/28/2020 TIME of SERVICE: 1:12 PM CHECKED BY: rob documented as of this encounter (statuses as of 04/05/2022) [facility] History of Past illness Narrative* Problem Noted Date Resolved Date On mechanically assisted ventilation 03/03/2020 03/04/2020 Overview: Assessment: intubated and sedated from OR Plan: WTE Cardiac insufficiency 03/03/2020 03/04/2020 Overview: See care coordination note Postoperative hypotension 03/03/20202019 Overview: See care coordination note Pre-op testing 02/28/2020 03/06/2020 Overview: [facility]OP [facility] Surgeon: Marino Schwartz M.D. Informed Consent Completed: Yes STS Score: CAD: No Is intended procedure a CABG: No - is a beta best ordered? Yes H & P completed: Yes PA/LAT: Completed CT: Completed MRI: N/A LE US: N/A Cath: Yes - reviewed: Yes EKG: Completed Is patient on Amiodarone? No Echo:Completed EF %: 42 PI's: N/A Carotid: N/A Mapping: N/A Dental: Completed PFT's: Completed Recent Labs 02/27/20 0720 WBC 5.98 HB 14.4 HCT 43.2 PLT 230 INR 1.0 CREAT 0.86 UA: Normal HCG:N/A ABO/ABO Confirmed: Yes Blood ordered: Yes, redo Willing to accept blood: SA Swab: Yes - results: Pending Last Dose of Anticoagulation: Eliquis last dose 02/18/2020 Op Note: Yes, see epic Pacemaker Check: N/A Implants: no Consults: none DM: No Cardiac Surgical prep: N/A SIGNATURE: Jana Mccabe APRN.CNP DATE of SERVICE: 02/28/2020 TIME of SERVICE: 1:12 PM CHECKED BY: rob documented as of this encounter (statuses as of 04/07/2022) [facility] History of Past illness Narrative* Problem Noted Date Resolved Date On mechanically assisted ventilation 03/03/2020 03/04/2020 Overview: Assessment: intubated and sedated from OR Plan: WTE Cardiac insufficiency 03/03/2020 03/04/2020 Overview: See care coordination note Postoperative hypotension 03/03/20202019 Overview: See care coordination note Pre-op testing 02/28/2020 03/06/2020 Overview: [facility]OP [facility]LIST Surgeon: Marino Schwartz M.D. Informed Consent Completed: Yes STS Score: CAD: No Is intended procedure a CABG: No - is a beta best ordered? Yes H & P completed: Yes PA/LAT: Completed CT: Completed MRI: N/A LE US: N/A Cath: Yes - reviewed: Yes EKG: Completed Is patient on Amiodarone? No Echo:Completed EF %: 42 PI's: N/A Carotid: N/A Mapping: N/A Dental: Completed PFT's: Completed Recent Labs 02/27/20 0720 WBC 5.98 HB 14.4 HCT 43.2 PLT 230 INR 1.0 CREAT 0.86 UA: Normal HCG:N/A ABO/ABO Confirmed: Yes Blood ordered: Yes, redo Willing to accept blood: SA Swab: Yes - results: Pending Last Dose of Anticoagulation: Eliquis last dose 02/18/2020 Op Note: Yes, see epic Pacemaker Check: N/A Implants: no Consults: none DM: No Cardiac Surgical prep: N/A SIGNATURE: Jana Mccabe APRN.CNP DATE of SERVICE: 02/28/2020 TIME of SERVICE: 1:12 PM CHECKED BY: rob documented as of this encounter (statuses as of 05/03/2022) [facility]10-19-2020 History of Past illness Narrative* Problem Noted Date Resolved Date On mechanically assisted ventilation 03/03/2020 03/04/2020 Overview: Assessment: intubated and sedated from OR Plan: WTE Cardiac insufficiency 03/03/2020 03/04/2020 Overview: See care coordination note Postoperative hypotension 03/03/20202019 Overview: See care coordination note Pre-op testing 02/28/2020 03/06/2020 [facility] Surgeon: Marino Schwartz M.D. Informed Consent Completed: Yes STS Score: CAD: No Is intended procedure a CABG: No - is a beta best ordered? Yes H & P completed: Yes PA/LAT: Completed CT: Completed MRI: N/A LE US: N/A Cath: Yes - reviewed: Yes EKG: Completed Is patient on Amiodarone? No Echo:Completed EF %: 42 PI's: N/A Carotid: N/A Mapping: N/A Dental: Completed PFT's: Completed Recent Labs 02/27/20 0720 WBC 5.98 HB 14.4 HCT 43.2 PLT 230 INR 1.0 CREAT 0.86 UA: Normal HCG:N/A ABO/ABO Confirmed: Yes Blood ordered: Yes, redo Willing to accept blood: SA Swab: Yes - results: Pending Last Dose of Anticoagulation: Eliquis last dose 02/18/2020 Op Note: Yes, see epic Pacemaker Check: N/A Implants: no Consults: none DM: No Cardiac Surgical prep: N/A SIGNATURE: Jana Mccabe APRN.CNP DATE of SERVICE: 02/28/2020 TIME of SERVICE: 1:12 PM CHECKED BY: rob documented as of this encounter (statuses as of 05/17/2022) [facility]10-19-2020 History of Past illness Narrative* Problem Noted Date Resolved Date On mechanically assisted ventilation 03/03/2020 03/04/2020 Overview: Assessment: intubated and sedated from OR Plan: WTE Cardiac insufficiency 03/03/2020 03/04/2020 Overview: See care coordination note Postoperative hypotension 03/03/20202019 Overview: See care coordination note Pre-op testing 02/28/2020 03/06/2020 Overview: [facility] Surgeon: Marino Schwartz M.D. Informed Consent Completed: Yes STS Score: CAD: No Is intended procedure a CABG: No - is a beta best ordered? Yes H & P completed: Yes PA/LAT: Completed CT: Completed MRI: N/A LE US: N/A Cath: Yes - reviewed: Yes EKG: Completed Is patient on Amiodarone? No Echo:Completed EF %: 42 PI's: N/A Carotid: N/A Mapping: N/A Dental: Completed PFT's: Completed Recent Labs 02/27/20 0720 WBC 5.98 HB 14.4 HCT 43.2 PLT 230 INR 1.0 CREAT 0.86 UA: Normal HCG:N/A ABO/ABO Confirmed: Yes Blood ordered: Yes, redo Willing to accept blood: SA Swab: Yes - results: Pending Last Dose of Anticoagulation: Eliquis last dose 02/18/2020 Op Note: Yes, see epic Pacemaker Check: N/A Implants: no Consults: none DM: No Cardiac Surgical prep: N/A SIGNATURE: Jana Mccabe APRN.CNP DATE of SERVICE: 02/28/2020 TIME of SERVICE: 1:12 PM CHECKED BY: rob documented as of this encounter (statuses as of 05/25/2022) [facility]10[facility]2020 History of Past illness Narrative* Problem Noted Date Resolved Date On mechanically assisted ventilation 03/03/2020 03/04/2020 Overview: Assessment: intubated and sedated from OR Plan: WTE Cardiac insufficiency 03/03/2020 03/04/2020 Overview: See care coordination note Postoperative hypotension 03/03/20202019 Overview: See care coordination note Pre-op testing 02/28/2020 03/06/2020 Overview: [facility] Surgeon: Marino Schwartz M.D. Informed Consent Completed: Yes STS Score: CAD: No Is intended procedure a CABG: No - is a beta best ordered? Yes H & P completed: Yes PA/LAT: Completed CT: Completed MRI: N/A LE US: N/A Cath: Yes - reviewed: Yes EKG: Completed Is patient on Amiodarone? No Echo:Completed EF %: 42 PI's: N/A Carotid: N/A Mapping: N/A Dental: Completed PFT's: Completed Recent Labs 02/27/20 0720 WBC 5.98 HB 14.4 HCT 43.2 PLT 230 INR 1.0 CREAT 0.86 UA: Normal HCG:N/A ABO/ABO Confirmed: Yes Blood ordered: Yes, redo Willing to accept blood: SA Swab: Yes - results: Pending Last Dose of Anticoagulation: Eliquis last dose 02/18/2020 Op Note: Yes, see epic Pacemaker Check: N/A Implants: no Consults: none DM: No Cardiac Surgical prep: N/A SIGNATURE: Jana Mccabe APRN.CNP DATE of SERVICE: 02/28/2020 TIME of SERVICE: 1:12 PM CHECKED BY: rob documented as of this encounter (statuses as of 05/26/2022) [facility]10[facility]2020 History of Past illness Narrative* Problem Noted Date Resolved Date On mechanically assisted ventilation 03/03/2020 03/04/2020 Overview: Assessment: intubated and sedated from OR Plan: WTE Cardiac insufficiency 03/03/2020 03/04/2020 Overview: See care coordination note Postoperative hypotension 03/03/20202019 Overview: See care coordination note Pre-op testing 02/28/2020 03/06/2020 Overview: [facility] Surgeon: Marino Schwartz M.D. Informed Consent Completed: Yes STS Score: CAD: No Is intended procedure a CABG: No - is a beta best ordered? Yes H & P completed: Yes PA/LAT: Completed CT: Completed MRI: N/A LE US: N/A Cath: Yes - reviewed: Yes EKG: Completed Is patient on Amiodarone? No Echo:Completed EF %: 42 PI's: N/A Carotid: N/A Mapping: N/A Dental: Completed PFT's: Completed Recent Labs 02/27/20 0720 WBC 5.98 HB 14.4 HCT 43.2 PLT 230 INR 1.0 CREAT 0.86 UA: Normal HCG:N/A ABO/ABO Confirmed: Yes Blood ordered: Yes, redo Willing to accept blood: SA Swab: Yes - results: Pending Last Dose of Anticoagulation: Eliquis last dose 02/18/2020 Op Note: Yes, see epic Pacemaker Check: N/A Implants: no Consults: none DM: No Cardiac Surgical prep: N/A SIGNATURE: Jana Mccabe APRN.CNP DATE of SERVICE: 02/28/2020 TIME of SERVICE: 1:12 PM CHECKED BY: rob documented as of this encounter (statuses as of 05/26/2022) [facility]10[facility]2020 History of Past illness Narrative* Problem Noted Date Resolved Date On mechanically assisted ventilation 03/03/2020 03/04/2020 Overview: Assessment: intubated and sedated from OR Plan: WTE Cardiac insufficiency 03/03/2020 03/04/2020 Overview: See care coordination note Postoperative hypotension 03/03/20202019 Overview: See care coordination note Pre-op testing 02/28/2020 03/06/2020 Overview: [facility] Surgeon: Marino Schwartz M.D. Informed Consent Completed: Yes STS Score: CAD: No Is intended procedure a CABG: No - is a beta best ordered? Yes H & P completed: Yes PA/LAT: Completed CT: Completed MRI: N/A LE US: N/A Cath: Yes - reviewed: Yes EKG: Completed Is patient on Amiodarone? No Echo:Completed EF %: 42 PI's: N/A Carotid: N/A Mapping: N/A Dental: Completed PFT's: Completed Recent Labs 02/27/20 0720 WBC 5.98 HB 14.4 HCT 43.2 PLT 230 INR 1.0 CREAT 0.86 UA: Normal HCG:N/A ABO/ABO Confirmed: Yes Blood ordered: Yes, redo Willing to accept blood: SA Swab: Yes - results: Pending Last Dose of Anticoagulation: Eliquis last dose 02/18/2020 Op Note: Yes, see epic Pacemaker Check: N/A Implants: no Consults: none DM: No Cardiac Surgical prep: N/A SIGNATURE: Jana Mccabe APRN.CNP DATE of SERVICE: 02/28/2020 TIME of SERVICE: 1:12 PM CHECKED BY: rob documented as of this encounter (statuses as of 05/26/2022) [facility]10[facility]2020 History of Past illness Narrative* Problem Noted Date Resolved Date On mechanically assisted ventilation 03/03/2020 03/04/2020 Overview: Assessment: intubated and sedated from OR Plan: WTE Cardiac insufficiency 03/03/2020 03/04/2020 Overview: See care coordination note Postoperative hypotension 03/03/20202019 Overview: See care coordination note Pre-op testing 02/28/2020 03/06/2020 Overview: [facility] Surgeon: Marino Schwartz M.D. Informed Consent Completed: Yes STS Score: CAD: No Is intended procedure a CABG: No - is a beta best ordered? Yes H & P completed: Yes PA/LAT: Completed CT: Completed MRI: N/A LE US: N/A Cath: Yes - reviewed: Yes EKG: Completed Is patient on Amiodarone? No Echo:Completed EF %: 42 PI's: N/A Carotid: N/A Mapping: N/A Dental: Completed PFT's: Completed Recent Labs 02/27/20 0720 WBC 5.98 HB 14.4 HCT 43.2 PLT 230 INR 1.0 CREAT 0.86 UA: Normal HCG:N/A ABO/ABO Confirmed: Yes Blood ordered: Yes, redo Willing to accept blood: SA Swab: Yes - results: Pending Last Dose of Anticoagulation: Eliquis last dose 02/18/2020 Op Note: Yes, see epic Pacemaker Check: N/A Implants: no Consults: none DM: No Cardiac Surgical prep: N/A SIGNATURE: Jana Mccabe APRN.CNP DATE of SERVICE: 02/28/2020 TIME of SERVICE: 1:12 PM CHECKED BY: rob documented as of this encounter (statuses as of 07/22/2022) [facility]10[facility]2020 History of Past illness Narrative* Problem Noted Date Resolved Date On mechanically assisted ventilation 03/03/2020 03/04/2020 Overview: Assessment: intubated and sedated from OR Plan: WTE Cardiac insufficiency 03/03/2020 03/04/2020 Overview: See care coordination note Postoperative hypotension 03/03/20202019 Overview: See care coordination note Pre-op testing 02/28/2020 03/06/2020 Overview: [facility] Surgeon: Marino Schwartz M.D. Informed Consent Completed: Yes STS Score: CAD: No Is intended procedure a CABG: No - is a beta best ordered? Yes H & P completed: Yes PA/LAT: Completed CT: Completed MRI: N/A LE US: N/A Cath: Yes - reviewed: Yes EKG: Completed Is patient on Amiodarone? No Echo:Completed EF %: 42 PI's: N/A Carotid: N/A Mapping: N/A Dental: Completed PFT's: Completed Recent Labs 02/27/20 0720 WBC 5.98 HB 14.4 HCT 43.2 PLT 230 INR 1.0 CREAT 0.86 UA: Normal HCG:N/A ABO/ABO Confirmed: Yes Blood ordered: Yes, redo Willing to accept blood: SA Swab: Yes - results: Pending Last Dose of Anticoagulation: Eliquis last dose 02/18/2020 Op Note: Yes, see epic Pacemaker Check: N/A Implants: no Consults: none DM: No Cardiac Surgical prep: N/A SIGNATURE: Jana Mccabe APRN.CNP DATE of SERVICE: 02/28/2020 TIME of SERVICE: 1:12 PM CHECKED BY: rob documented as of this encounter (statuses as of 08/05/2022) [facility]10[facility]2020 History of Past illness Narrative* Problem Noted Date Resolved Date On mechanically assisted ventilation 03/03/2020 03/04/2020 Overview: Assessment: intubated and sedated from OR Plan: WTE Cardiac insufficiency 03/03/2020 03/04/2020 Overview: See care coordination note Postoperative hypotension 03/03/20202019 Overview: See care coordination note Pre-op testing 02/28/2020 03/06/2020 Overview: [facility] Surgeon: Marino Schwartz M.D. Informed Consent Completed: Yes STS Score: CAD: No Is intended procedure a CABG: No - is a beta best ordered? Yes H & P completed: Yes PA/LAT: Completed CT: Completed MRI: N/A LE US: N/A Cath: Yes - reviewed: Yes EKG: Completed Is patient on Amiodarone? No Echo:Completed EF %: 42 PI's: N/A Carotid: N/A Mapping: N/A Dental: Completed PFT's: Completed Recent Labs 02/27/20 0720 WBC 5.98 HB 14.4 HCT 43.2 PLT 230 INR 1.0 CREAT 0.86 UA: Normal HCG:N/A ABO/ABO Confirmed: Yes Blood ordered: Yes, redo Willing to accept blood: SA Swab: Yes - results: Pending Last Dose of Anticoagulation: Eliquis last dose 02/18/2020 Op Note: Yes, see epic Pacemaker Check: N/A Implants: no Consults: none DM: No Cardiac Surgical prep: N/A SIGNATURE: Jana Mccabe APRN.CNP DATE of SERVICE: 02/28/2020 TIME of SERVICE: 1:12 PM CHECKED BY: rob documented as of this encounter (statuses as of 08/06/2022) [facility] History of Past illness Narrative* Problem Noted Date Resolved Date On mechanically assisted ventilation 03/03/2020 03/04/2020 Overview: Assessment: intubated and sedated from OR Plan: WTE Cardiac insufficiency 03/03/2020 03/04/2020 Overview: See care coordination note Postoperative hypotension 03/03/20202019 Overview: See care coordination note Pre-op testing 02/28/2020 03/06/2020 Overview: [facility] Surgeon: Marino Schwartz M.D. Informed Consent Completed: Yes STS Score: CAD: No Is intended procedure a CABG: No - is a beta best ordered? Yes H & P completed: Yes PA/LAT: Completed CT: Completed MRI: N/A LE US: N/A Cath: Yes - reviewed: Yes EKG: Completed Is patient on Amiodarone? No Echo:Completed EF %: 42 PI's: N/A Carotid: N/A Mapping: N/A Dental: Completed PFT's: Completed Recent Labs 02/27/20 0720 WBC 5.98 HB 14.4 HCT 43.2 PLT 230 INR 1.0 CREAT 0.86 UA: Normal HCG:N/A ABO/ABO Confirmed: Yes Blood ordered: Yes, redo Willing to accept blood: SA Swab: Yes - results: Pending Last Dose of Anticoagulation: Eliquis last dose 02/18/2020 Op Note: Yes, see epic Pacemaker Check: N/A Implants: no Consults: none DM: No Cardiac Surgical prep: N/A SIGNATURE: Jana Mccabe APRN.CNP DATE of SERVICE: 02/28/2020 TIME of SERVICE: 1:12 PM CHECKED BY: rob documented as of this encounter (statuses as of 08/09/2022) [facility] History of Past illness Narrative* Problem Noted Date Resolved Date On mechanically assisted ventilation 03/03/2020 03/04/2020 Overview: Assessment: intubated and sedated from OR Plan: WTE Cardiac insufficiency 03/03/2020 03/04/2020 Overview: See care coordination note Postoperative hypotension 03/03/20202019 Overview: See care coordination note Pre-op testing 02/28/2020 03/06/2020 Overview: [facility] Surgeon: Marino Schwartz M.D. Informed Consent Completed: Yes STS Score: CAD: No Is intended procedure a CABG: No - is a beta best ordered? Yes H & P completed: Yes PA/LAT: Completed CT: Completed MRI: N/A LE US: N/A Cath: Yes - reviewed: Yes EKG: Completed Is patient on Amiodarone? No Echo:Completed EF %: 42 PI's: N/A Carotid: N/A Mapping: N/A Dental: Completed PFT's: Completed Recent Labs 02/27/20 0720 WBC 5.98 HB 14.4 HCT 43.2 PLT 230 INR 1.0 CREAT 0.86 UA: Normal HCG:N/A ABO/ABO Confirmed: Yes Blood ordered: Yes, redo Willing to accept blood: SA Swab: Yes - results: Pending Last Dose of Anticoagulation: Eliquis last dose 02/18/2020 Op Note: Yes, see epic Pacemaker Check: N/A Implants: no Consults: none DM: No Cardiac Surgical prep: N/A SIGNATURE: Jana Mccabe APRN.CNP DATE of SERVICE: 02/28/2020 TIME of SERVICE: 1:12 PM CHECKED BY: rob documented as of this encounter (statuses as of 09/03/2022) [facility] History of Past illness Narrative* Problem Noted Date Resolved Date On mechanically assisted ventilation 03/03/2020 03/04/2020 Overview: Assessment: intubated and sedated from OR Plan: WTE Cardiac insufficiency 03/03/2020 03/04/2020 Overview: See care coordination note Postoperative hypotension 03/03/20202019 Overview: See care coordination note Pre-op testing 02/28/2020 03/06/2020 Overview: [facility] Surgeon: Marino Schwartz M.D. Informed Consent Completed: Yes STS Score: CAD: No Is intended procedure a CABG: No - is a beta best ordered? Yes H & P completed: Yes PA/LAT: Completed CT: Completed MRI: N/A LE US: N/A Cath: Yes - reviewed: Yes EKG: Completed Is patient on Amiodarone? No Echo:Completed EF %: 42 PI's: N/A Carotid: N/A Mapping: N/A Dental: Completed PFT's: Completed Recent Labs 02/27/20 0720 WBC 5.98 HB 14.4 HCT 43.2 PLT 230 INR 1.0 CREAT 0.86 UA: Normal HCG:N/A ABO/ABO Confirmed: Yes Blood ordered: Yes, redo Willing to accept blood: SA Swab: Yes - results: Pending Last Dose of Anticoagulation: Eliquis last dose 02/18/2020 Op Note: Yes, see epic Pacemaker Check: N/A Implants: no Consults: none DM: No Cardiac Surgical prep: N/A SIGNATURE: Jana Mccabe APRN.CNP DATE of SERVICE: 02/28/2020 TIME of SERVICE: 1:12 PM CHECKED BY: rob documented as of this encounter (statuses as of 09/25/2022) [facility] History of Past illness Narrative* Problem Noted Date Resolved Date On mechanically assisted ventilation 03/03/2020 03/04/2020 Overview: Assessment: intubated and sedated from OR Plan: WTE Cardiac insufficiency 03/03/2020 03/04/2020 Overview: See care coordination note Postoperative hypotension 03/03/20202019 Overview: See care coordination note Pre-op testing 02/28/2020 03/06/2020 Overview: [facility] Surgeon: Marino Schwartz M.D. Informed Consent Completed: Yes STS Score: CAD: No Is intended procedure a CABG: No - is a beta best ordered? Yes H & P completed: Yes PA/LAT: Completed CT: Completed MRI: N/A LE US: N/A Cath: Yes - reviewed: Yes EKG: Completed Is patient on Amiodarone? No Echo:Completed EF %: 42 PI's: N/A Carotid: N/A Mapping: N/A Dental: Completed PFT's: Completed Recent Labs 02/27/20 0720 WBC 5.98 HB 14.4 HCT 43.2 PLT 230 INR 1.0 CREAT 0.86 UA: Normal HCG:N/A ABO/ABO Confirmed: Yes Blood ordered: Yes, redo Willing to accept blood: SA Swab: Yes - results: Pending Last Dose of Anticoagulation: Eliquis last dose 02/18/2020 Op Note: Yes, see epic Pacemaker Check: N/A Implants: no Consults: none DM: No Cardiac Surgical prep: N/A SIGNATURE: Jana Mccabe APRN.CNP DATE of SERVICE: 02/28/2020 TIME of SERVICE: 1:12 PM CHECKED BY: rob documented as of this encounter (statuses as of 10/28/2022) [facility] History of Past illness Narrative* Problem Noted Date Resolved Date On mechanically assisted ventilation 03/03/2020 03/04/2020 Overview: Assessment: intubated and sedated from OR Plan: WTE Cardiac insufficiency 03/03/2020 03/04/2020 Overview: See care coordination note Postoperative hypotension 03/03/20202019 Overview: See care coordination note Pre-op testing 02/28/2020 03/06/2020 Overview: [facility] Surgeon: Marino Schwartz M.D. Informed Consent Completed: Yes STS Score: CAD: No Is intended procedure a CABG: No - is a beta best ordered? Yes H & P completed: Yes PA/LAT: Completed CT: Completed MRI: N/A LE US: N/A Cath: Yes - reviewed: Yes EKG: Completed Is patient on Amiodarone? No Echo:Completed EF %: 42 PI's: N/A Carotid: N/A Mapping: N/A Dental: Completed PFT's: Completed Recent Labs 02/27/20 0720 WBC 5.98 HB 14.4 HCT 43.2 PLT 230 INR 1.0 CREAT 0.86 UA: Normal HCG:N/A ABO/ABO Confirmed: Yes Blood ordered: Yes, redo Willing to accept blood: SA Swab: Yes - results: Pending Last Dose of Anticoagulation: Eliquis last dose 02/18/2020 Op Note: Yes, see epic Pacemaker Check: N/A Implants: no Consults: none DM: No Cardiac Surgical prep: N/A SIGNATURE: Jana Mccabe APRN.CNP DATE of SERVICE: 02/28/2020 TIME of SERVICE: 1:12 PM CHECKED BY: rob documented as of this encounter (statuses as of 11/08/2022) [facility] History of Past illness Narrative* Problem Noted Date Resolved Date On mechanically assisted ventilation 03/03/2020 03/04/2020 Overview: Assessment: intubated and sedated from OR Plan: WTE Cardiac insufficiency 03/03/2020 03/04/2020 Overview: See care coordination note Postoperative hypotension 03/03/20202019 Overview: See care coordination note Pre-op testing 02/28/2020 03/06/2020 Overview: [facility] Surgeon: Marino Schwartz M.D. Informed Consent Completed: Yes STS Score: CAD: No Is intended procedure a CABG: No - is a beta best ordered? Yes H & P completed: Yes PA/LAT: Completed CT: Completed MRI: N/A LE US: N/A Cath: Yes - reviewed: Yes EKG: Completed Is patient on Amiodarone? No Echo:Completed EF %: 42 PI's: N/A Carotid: N/A Mapping: N/A Dental: Completed PFT's: Completed Recent Labs 02/27/20 0720 WBC 5.98 HB 14.4 HCT 43.2 PLT 230 INR 1.0 CREAT 0.86 UA: Normal HCG:N/A ABO/ABO Confirmed: Yes Blood ordered: Yes, redo Willing to accept blood: SA Swab: Yes - results: Pending Last Dose of Anticoagulation: Eliquis last dose 02/18/2020 Op Note: Yes, see epic Pacemaker Check: N/A Implants: no Consults: none DM: No Cardiac Surgical prep: N/A SIGNATURE: Jana Mccabe APRN.CNP DATE of SERVICE: 02/28/2020 TIME of SERVICE: 1:12 PM CHECKED BY: rob documented as of this encounter (statuses as of 11/16/2022) [facility] History of Past illness Narrative* Problem Noted Date Diagnosed Date Resolved Date On mechanically assisted ventilation 03/03/2020 03/04/2020 Overview: Assessment: intubated and sedated from OR Plan: WTE Cardiac insufficiency 03/03/20202019 Overview: See care coordination note Postoperative hypotension 03/03/2020 Overview: See care coordination note Pre-op testing 02/28/2020 03/06/2020 Overview: [facility] Surgeon: Marino Schwartz M.D. Informed Consent Completed: Yes STS Score: CAD: No Is intended procedure a CABG: No - is a beta best ordered? Yes H & P completed: Yes PA/LAT: Completed CT: Completed MRI: N/A LE US: N/A Cath: Yes - reviewed: Yes EKG: Completed Is patient on Amiodarone? No Echo:Completed EF %: 42 PI's: N/A Carotid: N/A Mapping: N/A Dental: Completed PFT's: Completed Recent Labs 02/27/20 0720 WBC 5.98 HB 14.4 HCT 43.2 PLT 230 INR 1.0 CREAT 0.86 UA: Normal HCG:N/A ABO/ABO Confirmed: Yes Blood ordered: Yes, redo Willing to accept blood: SA Swab: Yes - results: Pending Last Dose of Anticoagulation: Eliquis last dose 02/18/2020 Op Note: Yes, see epic Pacemaker Check: N/A Implants: no Consults: none DM: No Cardiac Surgical prep: N/A SIGNATURE: Jana Mccabe APRN.CNP DATE of SERVICE: 02/28/2020 TIME of SERVICE: 1:12 PM CHECKED BY: rob documented as of this encounter (statuses as of 01/12/2023) [facility] History of Past illness Narrative* Problem Noted Date Diagnosed Date Resolved Date On mechanically assisted ventilation 03/03/2020 03/04/2020 Overview: Assessment: intubated and sedated from OR Plan: WTE Cardiac insufficiency 03/03/20202019 Overview: See care coordination note Postoperative hypotension 03/03/2020 Overview: See care coordination note Pre-op testing 02/28/2020 03/06/2020 Overview: [facility] Surgeon: Marino Schwartz M.D. Informed Consent Completed: Yes STS Score: CAD: No Is intended procedure a CABG: No - is a beta best ordered? Yes H & P completed: Yes PA/LAT: Completed CT: Completed MRI: N/A LE US: N/A Cath: Yes - reviewed: Yes EKG: Completed Is patient on Amiodarone? No Echo:Completed EF %: 42 PI's: N/A Carotid: N/A Mapping: N/A Dental: Completed PFT's: Completed Recent Labs 02/27/20 0720 WBC 5.98 HB 14.4 HCT 43.2 PLT 230 INR 1.0 CREAT 0.86 UA: Normal HCG:N/A ABO/ABO Confirmed: Yes Blood ordered: Yes, redo Willing to accept blood: SA Swab: Yes - results: Pending Last Dose of Anticoagulation: Eliquis last dose 02/18/2020 Op Note: Yes, see epic Pacemaker Check: N/A Implants: no Consults: none DM: No Cardiac Surgical prep: N/A SIGNATURE: Jana Mccabe APRN.CNP DATE of SERVICE: 02/28/2020 TIME of SERVICE: 1:12 PM CHECKED BY: rob documented as of this encounter (statuses as of 01/15/2023) [facility] History of Past illness Narrative* Problem Noted Date Diagnosed Date Resolved Date On mechanically assisted ventilation 03/03/2020 03/04/2020 Overview: Assessment: intubated and sedated from OR Plan: WTE Cardiac insufficiency 03/03/20202019 Overview: See care coordination note Postoperative hypotension 03/03/2020 Overview: See care coordination note Pre-op testing 02/28/2020 03/06/2020 Overview: [facility] Surgeon: Marino Schwartz M.D. Informed Consent Completed: Yes STS Score: CAD: No Is intended procedure a CABG: No - is a beta best ordered? Yes H & P completed: Yes PA/LAT: Completed CT: Completed MRI: N/A LE US: N/A Cath: Yes - reviewed: Yes EKG: Completed Is patient on Amiodarone? No Echo:Completed EF %: 42 PI's: N/A Carotid: N/A Mapping: N/A Dental: Completed PFT's: Completed Recent Labs 02/27/20 0720 WBC 5.98 HB 14.4 HCT 43.2 PLT 230 INR 1.0 CREAT 0.86 UA: Normal HCG:N/A ABO/ABO Confirmed: Yes Blood ordered: Yes, redo Willing to accept blood: SA Swab: Yes - results: Pending Last Dose of Anticoagulation: Eliquis last dose 02/18/2020 Op Note: Yes, see epic Pacemaker Check: N/A Implants: no Consults: none DM: No Cardiac Surgical prep: N/A SIGNATURE: Jana Mccabe APRN.CNP DATE of SERVICE: 02/28/2020 TIME of SERVICE: 1:12 PM CHECKED BY: rob documented as of this encounter (statuses as of 03/30/2023) [facility]10-19-2020 History of Past illness Narrative* Problem Noted Date Diagnosed Date Resolved Date On mechanically assisted ventilation 03/03/2020 03/04/2020 Overview: Assessment: intubated and sedated from OR Plan: WTE Postoperative pain 03/03/2020 3 Overview: History: Postop Assessment: Pain control adequate Plan: Continue scheduled tylenol, prn oxycodone, and ultram Cardiac insufficiency 03/03/20202019 Overview: See care coordination note Postoperative hypotension 03/03/2020 Overview: See care coordination note Pre-op testing 02/28/2020 03/06/2020 [facility] Surgeon: Marino Schwartz M.D. Informed Consent Completed: Yes STS Score: CAD: No Is intended procedure a CABG: No - is a beta best ordered? Yes H & P completed: Yes PA/LAT: Completed CT: Completed MRI: N/A LE US: N/A Cath: Yes - reviewed: Yes EKG: Completed Is patient on Amiodarone? No Echo:Completed EF %: 42 PI's: N/A Carotid: N/A Mapping: N/A Dental: Completed PFT's: Completed Recent Labs 02/27/20 0720 WBC 5.98 HB 14.4 HCT 43.2 PLT 230 INR 1.0 CREAT 0.86 UA: Normal HCG:N/A ABO/ABO Confirmed: Yes Blood ordered: Yes, redo Willing to accept blood: SA Swab: Yes - results: Pending Last Dose of Anticoagulation: Eliquis last dose 02/18/2020 Op Note: Yes, see epic Pacemaker Check: N/A Implants: no Consults: none DM: No Cardiac Surgical prep: N/A SIGNATURE: Jana Mccabe APRN.CNP DATE of SERVICE: 02/28/2020 TIME of SERVICE: 1:12 PM CHECKED BY: rob documented as of this encounter (statuses as of 04/02/2023) [facility] Diagnosis Paroxysmal atrial fibrillation (HCC)- Primary Atrial fibrillation Generalized anxiety disorder Dilated cardiomyopathy (HCC) Other primary cardiomyopathies Gastroesophageal reflux disease without esophagitis Esophageal reflux Stress hyperglycemia Other abnormal blood chemistry Hypertriglyceridemia Pure hyperglyceridemia Current use of proton pump inhibitor Encounter for long-term (current) use of other medications Pain of toe of left foot Pain in limb documented in this encounter [facility]* Diagnosis Chronic systolic heart failure (HCC)- Primary Chronic systolic heart failure documented [facility] this [facility]* Diagnosis Paroxysmal atrial fibrillation (HCC)- Primary Atrial fibrillation Dilated cardiomyopathy (HCC) Other primary cardiomyopathies Chronic systolic heart failure (HCC) Chronic systolic heart failure Prosthetic mitral valve regurgitation, subsequent encounter Hypertriglyceridemia Pure hyperglyceridemia Gastroesophageal reflux disease without esophagitis Esophageal reflux Current use of proton pump inhibitor Encounter for long-term (current) use of other medications Generalized anxiety disorder Elevated C-reactive protein (CRP) Pain of toe of left foot Pain in limb DI (obstructive sleep apnea) Obstructive sleep apnea (adult) (pediatric) Gouty arthritis of right foot Medicare annual wellness visit, initial Routine general medical examination at a health care facility Hx of colonoscopy Other postprocedural status Screening for prostate cancer Special screening for malignant neoplasm of prostate Elevated blood sugar Other abnormal glucose [facility] Paroxysmal atrial fibrillation (HCC) Atrial fibrillation [facility] Diagnosis Dilated cardiomyopathy (HCC) Other primary cardiomyopathies [facility] Diagnosis Paroxysmal atrial fibrillation (HCC)- Primary Atrial fibrillation [facility] Diagnosis Sinus pause- Primary Other heart block Cardiomyopathy, nonischemic (HCC) Other primary cardiomyopathies Chronic diastolic heart failure (HCC) Chronic diastolic heart failure S/P MVR (mitral valve replacement) Heart valve replaced by other means PAF (paroxysmal atrial fibrillation) (HCC) Atrial fibrillation S/P TVR (tricuspid valve repair) Other postprocedural status Hx of maze procedure Personal history of surgery to heart and great vessels, presenting hazards to health PVC (premature ventricular contraction) Other premature beats Accelerated junctional rhythm Other specified cardiac dysrhythmias [facility] Diagnosis Paroxysmal atrial fibrillation (HCC) Atrial fibrillation Dilated cardiomyopathy (HCC) Other primary cardiomyopathies Chronic systolic heart failure (HCC) Chronic systolic heart failure Generalized anxiety disorder [facility] Diagnosis Paroxysmal atrial fibrillation (HCC) Atrial fibrillation [facility] Diagnosis Arthritis of right wrist- Primary Unspecified arthropathy, forearm [facility] Diagnosis DDD (degenerative disc disease), cervical- Primary Degeneration of cervical intervertebral disc Chronic neck pain Cervicalgia [facility] Diagnosis PVC's (premature ventricular contractions)- Primary Other premature beats Sinus pause Other heart block [facility] Diagnosis Screening for HIV (human immunodeficiency virus)- Primary Special screening examination for other specified viral diseases [facility] Diagnosis Screening for viral disease- Primary Special screening examination for unspecified viral disease [facility] Diagnosis Right wrist pain- Primary Pain in joint, forearm Pain and swelling of right wrist [facility] Diagnosis Anxiety- Primary Anxiety state, unspecified [facility] Diagnosis Chronic systolic heart failure (HCC)- Primary Chronic systolic heart failure Dilated cardiomyopathy (HCC) Other primary cardiomyopathies Generalized anxiety disorder Hypertriglyceridemia Pure hyperglyceridemia Screening for prostate cancer Special screening for malignant neoplasm of prostate IFG (impaired fasting glucose) Impaired fasting glucose Bladder-neck obstruction [facility] Diagnosis Encounter for immunization- Primary Need for other specified prophylactic vaccination against single bacterial disease Paroxysmal atrial fibrillation (HCC) Atrial fibrillation Dilated cardiomyopathy (HCC) Other primary cardiomyopathies Chronic systolic heart failure (HCC) Chronic systolic heart failure History of mitral valve replacement Heart valve replaced by other means History of tricuspid valve repair Personal history of surgery to heart and great vessels, presenting hazards to health Generalized anxiety disorder Screening for colon cancer Special screening for malignant neoplasms, colon documented in this encounter [facility] for referral (narrative)* Outpatient Procedure (Routine) - Authorized Specialty Diagnoses / Procedures Referred By Jimmy burger Referred To Contact [facility] Diagnoses Chronic systolic heart failure (HCC) Procedures ECHO ECHO TTHRC R-T 2D W/WOM-MODE COMPL SPEC&COLR D Han Sadler MD [address] [facility] [address] [facility] [address] [address] Referral ID Status Reason Start Date Expiration Date Visits Requested Visits Authorized [id number] Authorized Auto-Generat ed Referral 01/29/2022 01/29/2023 1 1 * Outpatient Procedure (Routine) - Authorized Specialty Diagnoses / Procedures Referred By Contac t Referred To Contact [facility] Diagnoses Chronic systolic heart failure (HCC) Procedures ECG COMPLETE ECG ROUTINE ECG W/LEAST 12 LDS W/I&R Han Sadler MD [address] [place] [address] [address] Referral ID Status Reason Start Date Expiration Date Visits Requested Visits Authorized [id number] Authorized Auto-Generat ed Referral 01/29/2022 01/29/2023 1 1 [facility] for referral (narrative)* Outpatient Procedure (Routine) - Authorized Specialty Diagnoses / Procedures Referred By Contac t Referred To Contact [facility] Diagnoses Paroxysmal atrial fibrillation (HCC) Procedures ECG COMPLETE ECG ROUTINE ECG W/LEAST 12 LDS W/I&R Alysa Dominguez MD [id number] [place] [address] Referral ID Status Reason Start Date Expiration Date Visits Requested Visits Authorized [id number] Authorized Auto-Generat ed Referral 05/25/2022 05/25/2023 1 1 [facility] for referral (narrative)* Outpatient Procedure (Routine) - Pending Review Specialty Diagnoses / Procedures Referred By Contac t Referred To Contact [facility] Diagnoses Chronic systolic (congestive) heart failure (HCC) Sinus pause Procedures ECHO ECHO TTHRC R-T 2D W/WOM-MODE COMPL SPEC&COLR D Han Sadler MD [address] [place] [address] [place] [address] Referral ID Status Reason Start Date Expiration Date Visits Requested Visits Authorized [id number] Pending Review Auto-Generat ed Referral 05/25/2022 05/25/2023 1 1 * Consult, Test, Treat (Routine) - Authorized Specialty Diagnoses / Procedures Referred By Contac t Referred To Contact Diagnoses Sinus pause Procedures CONSULT TO ELECTROPHYSIOLOGY OFFICE/OUTPATIENT [facility] MDM 60-74 MINUTES Han Sadler MD [address] [facility] [place] [address] Referral ID Status Reason Start Date Expiration Date Visits Requested Visits Authorized [id number] Authorized PCP Requested Referral 05/25/2022 05/25/2023 1 1 * Outpatient Procedure (Routine) - Pending Review Specialty Diagnoses / Procedures Referred By Jimmy burger Referred [facility] Diagnoses Chronic systolic (congestive) heart failure (HCC) Procedures ECHO ECHO TTHRC R-T 2D W/WOM-MODE COMPL SPEC&COLR D Han Sadler MD [address] [place] [address] [facility] [address] [place] [address] Referral ID Status Reason Start Date Expiration Date Visits Requested Visits Authorized [id number] Pending Review Auto-Generat ed Referral 05/25/2022 05/25/2023 1 1 [facility] Diagnostic Procedure Only (Routine) - Pending Review Specialty Diagnoses / Procedures Referred By Jimmy burger Referred To Contact XR IMAGING Diagnoses Right wrist pain Pain and swelling of right wrist Procedures XR WRIST GENERAL 3V PA/LAT/OBL RIGHT RADEX WRIST COMPLETE MINIMUM 3 VIEWS Sherif Nichols, DO [address] [place] [address] Xr Imaging Referral ID Status Reason Start Date Expiration Date Visits Requested Visits Authorized [id number] Pending Review Auto-Generat ed Referral 07/06/2022 08/05/2023 1 1 [facility] Summary Purpose Family History No Family History Records FoundNo Family History Records Found Advance Directives No Advanced Directives Records FoundDocuments on File Type Date Recorded Patient Regulatory Coordinator Expl anation Advance Directive(s) 02/27/2020 8:10 AM Advance Directive(s) 02/27/2020 8:13 AM Advance Directive(s) 02/22/2020 10:16 AM Advance Directive(s) 02/22/2020 2:34 PM Documents on File Type Date Recorded Patient Regulatory Coordinator Expl anation Advance Directive(s) 02/27/2020 8:13 AM Documents on File Type Date Recorded Patient Regulatory Coordinator Expl anation Advance Directive(s) 02/27/2020 8:13 AM Reason for Referral Specialty Diagnoses / Procedures Referred By Contac t Referred To Contact Podiatry Diagnoses Gouty arthritis of right foot Procedures CONSULT TO PODIATRY OFFICE/OUTPATIENT [facility] 60-74 MINUTES Basilia Davis PA-C [address] [place] [address] Referral ID Status Reason Start Date Expiration Date Visits Requested Visits Authorized [id number] Pending Review PCP Requested Referral 03/23/2022 03/23/2023 1 1 Specialty Diagnoses / Procedures Referred By Contac t Referred To Contact Pain Management Diagnoses Arthritis of right wrist Procedures CONSULT TO PAIN MGT OFFICE/OUTPATIENT [facility] 60-74 MINUTES Basilia Davis PA-C [address] [place] [address] Referral ID Status Reason Start Date Expiration Date Visits Requested Visits Authorized [id number] Authorized PCP Requested Referral 07/21/2022 07/21/2023 1 1 Specialty Diagnoses / Procedures Referred By Contac t Referred To Contact Diagnoses DDD (degenerative disc disease), cervical Chronic neck pain Procedures CONSULT TO PAIN MGT OFFICE/OUTPATIENT [facility] 60-74 MINUTES Basilia Davis PA-C [address] [place] [address] Referral ID Status Reason Start Date Expiration Date Visits Requested Visits Authorized [id number] Authorized PCP Requested Referral 08/05/2022 08/05/2023 1 1 Additional Source Comments (unrecognized sect ion and content) No Status Records FoundNo Status Records Found INFORMATION SOURCE (unrecogn ized section and content) DATE CREATED AUTHOR AUTHOR'S ORGANIZ ATION 06/22/2023 [facility] Source Comments (unrecognize d section and content) In the event this informatio n is protected by the Federal Confidentiality of Alcohol and Drug Abuse Patient Records regulations: The Federal rules restrict any use of the information to criminally investigate or prosecute any alcohol or drug abuse patient.[facility] the event this information is protected by the Federal Confidentiality of Alcohol and Drug Abuse Patient Records regulations: The Federal rules restrict any use of the information to criminally investigate or prosecute any alcohol or drug abuse patient.[facility] the event this information is protected by the Federal Confidentiality of Alcohol and Drug Abuse Patient Records regulations: The Federal rules restrict any use of the information to criminally investigate or prosecute any alcohol or drug abuse patient.[facility] the event this information is protected by the Federal Confidentiality of Alcohol and Drug Abuse Patient Records regulations: The Federal rules restrict any use of the information to criminally investigate or prosecute any alcohol or drug abuse patient.[facility] the event this information is protected by the Federal Confidentiality of Alcohol and Drug Abuse Patient Records regulations: The Federal rules restrict any use of the information to criminally investigate or prosecute any alcohol or drug abuse patient.[facility] the event this information is protected by the Federal Confidentiality of Alcohol and Drug Abuse Patient Records regulations: The Federal rules restrict any use of the information to criminally investigate or prosecute any alcohol or drug abuse patient.[facility] the event this information is protected by the Federal Confidentiality of Alcohol and Drug Abuse Patient Records regulations: The Federal rules restrict any use of the information to criminally investigate or prosecute any alcohol or drug abuse patient.[facility] the event this information is protected by the Federal Confidentiality of Alcohol and Drug Abuse Patient Records regulations: The Federal rules restrict any use of the information to criminally investigate or prosecute any alcohol or drug abuse patient.[facility] Center[facility] the event this information is protected by the Federal Confidentiality of Alcohol and Drug Abuse Patient Records regulations: The Federal rules restrict any use of the information to criminally investigate or prosecute any alcohol or drug abuse patient.[facility] Center[facility] the event this information is protected by the Federal Confidentiality of Alcohol and Drug Abuse Patient Records regulations: The Federal rules restrict any use of the information to criminally investigate or prosecute any alcohol or drug abuse patient.[facility] Center[facility] the event this information is protected by the Federal Confidentiality of Alcohol and Drug Abuse Patient Records regulations: The Federal rules restrict any use of the information to criminally investigate or prosecute any alcohol or drug abuse patient.[facility] Center[facility] the event this information is protected by the Federal Confidentiality of Alcohol and Drug Abuse Patient Records regulations: The Federal rules restrict any use of the information to criminally investigate or prosecute any alcohol or drug abuse patient.[facility] Center[facility] the event this information is protected by the Federal Confidentiality of Alcohol and Drug Abuse Patient Records regulations: The Federal rules restrict any use of the information to criminally investigate or prosecute any alcohol or drug abuse patient.[facility] Center[facility] the event this information is protected by the Federal Confidentiality of Alcohol and Drug Abuse Patient Records regulations: The Federal rules restrict any use of the information to criminally investigate or prosecute any alcohol or drug abuse patient.[facility] Center[facility] the event this information is protected by the Federal Confidentiality of Alcohol and Drug Abuse Patient Records regulations: The Federal rules restrict any use of the information to criminally investigate or prosecute any alcohol or drug abuse patient.[facility] Center[facility] the event this information is protected by the Federal Confidentiality of Alcohol and Drug Abuse Patient Records regulations: The Federal rules restrict any use of the information to criminally investigate or prosecute any alcohol or drug abuse patient.[facility] Center[facility] the event this information is protected by the Federal Confidentiality of Alcohol and Drug Abuse Patient Records regulations: The Federal rules restrict any use of the information to criminally investigate or prosecute any alcohol or drug abuse patient.[facility] Center[facility] the event this information is protected by the Federal Confidentiality of Alcohol and Drug Abuse Patient Records regulations: The Federal rules restrict any use of the information to criminally investigate or prosecute any alcohol or drug abuse patient.[facility] CenterIn the event this information is protected by the Federal Confidentiality of Alcohol and Drug Abuse Patient Records regulations: The Federal rules restrict any use of the information to criminally investigate or prosecute any alcohol or drug abuse patient.[facility] CenterIn the event this information is protected by the Federal Confidentiality of Alcohol and Drug Abuse Patient Records regulations: The Federal rules restrict any use of the information to criminally investigate or prosecute any alcohol or drug abuse patient.[facility] CenterIn the event this information is protected by the Federal Confidentiality of Alcohol and Drug Abuse Patient Records regulations: The Federal rules restrict any use of the information to criminally investigate or prosecute any alcohol or drug abuse patient.[facility] CenterIn the event this information is protected by the Federal Confidentiality of Alcohol and Drug Abuse Patient Records regulations: The Federal rules restrict any use of the information to criminally investigate or prosecute any alcohol or drug abuse patient.[facility] CenterIn the event this information is protected by the Federal Confidentiality of Alcohol and Drug Abuse Patient Records regulations: The Federal rules restrict any use of the information to criminally investigate or prosecute any alcohol or drug abuse patient.[facility] CenterIn the event this information is protected by the Federal Confidentiality of Alcohol and Drug Abuse Patient Records regulations: The Federal rules restrict any use of the information to criminally investigate or prosecute any alcohol or drug abuse patient.[facility] CenterIn the event this information is protected by the Federal Confidentiality of Alcohol and Drug Abuse Patient Records regulations: The Federal rules restrict any use of the information to criminally investigate or prosecute any alcohol or drug abuse patient.[facility] CenterIn the event this information is protected by the Federal Confidentiality of Alcohol and Drug Abuse Patient Records regulations: The Federal rules restrict any use of the information to criminally investigate or prosecute any alcohol or drug abuse patient.[facility] CenterIn the event this information is protected by the Federal Confidentiality of Alcohol and Drug Abuse Patient Records regulations: The Federal rules restrict any use of the information to criminally investigate or prosecute any alcohol or drug abuse patient.[facility] CenterIn the event this information is protected by the Federal Confidentiality of Alcohol and Drug Abuse Patient Records regulations: The Federal rules restrict any use of the information to criminally investigate or prosecute any alcohol or drug abuse patient.[facility] CenterIn the event this information is protected by the Federal Confidentiality of Alcohol and Drug Abuse Patient Records regulations: The Federal rules restrict any use of the information to criminally investigate or prosecute any alcohol or drug abuse patient.[facility] Reason for Visit (unrecogniz ed section and content) Reason Comments Information Reason Comments Rx Refills Reason Comments Patient Assistance Program Form Reason Comments Yearly Exam Reason Comments Forms [employer] PAF Reason Comments Follow Up Specialty Diagnoses / Procedures Referred By Contac t Referred To Contact [facility] Diagnoses Chronic systolic heart failure (HCC) Procedures ECHO ECHO TTHRC R-T 2D W/WOM-MODE COMPL SPEC&COLR D Han Sadler MD [address] [place] [address] [facility] [address] [place] [id number] Referral ID Status Reason Start Date Expiration Date V isits Requested Visits Authorized [id number] Closed Auto-Generate d Referral 01/29/2022 01/29/2023 1 1 Reason Onset Date Comments Refill Request 05/26/2022 Reason Comments Consult Reason Comments Forms Reason Comments Opened In Error Specialty Diagnoses / Procedures Referred By Contac t Referred To Contact Diagnoses Sinus pause Procedures CONSULT TO ELECTROPHYSIOLOGY OFFICE/OUTPATIENT NEW HIGH MDM 60-74 MINUTES Han Sadler MD [address] [place] [address] Referral ID Status Reason Start Date Expiration Date V isits Requested Visits Authorized [id number] Closed PCP Requested Referral 05/25/2022 05/25/2023 1 1 Reason Comments Orders Reason Comments Results Reason Comments Orders Reason Comments Yearly Exam Care Teams (unrecognized sec tion and content) Consulting Software Engineer Relationship Specialty Start Date End Date Basilia Davis PA-C [address] [place] [address] PCP - General Family Practice 10/15/16 [facility] [address] [place] [address] Referring Cardiology 04/05/19 Han Sadler MD [address] [place] [address] Primary Staff Physician Cardiology 10/30/19 Consulting Software Engineer Relationship Specialty Start Date End Date Basilia Davis PA-C [address] [place] [address] PCP - General Family Practice 10/15/16 [facility] [address] [place] [address] Referring Cardiology 04/05/19 Han Sadler MD [address] [place] [address] Primary Staff Physician Cardiology 10/30/19 Consulting Software Engineer Relationship Specialty Start Date End Date Basilia Davis PA-C [address] [place] [address] PCP - General Family Practice 10/15/16 [facility] [address] [place] [address] Referring Cardiology 04/05/19 Han Sadler MD [address] [facility] [place] [address] Primary Staff Physician Cardiology 10/30/19 Consulting Software Engineer Relationship Specialty Start Date End Date Basilia Davis PA-C [address] [place] [address] PCP - General Family Medicine 10/15/16 [facility] Corey Jadiel [address] [place] [address] Referring Cardiology 04/05/19 Han Sadler MD [address] [place] [address] Primary Staff Physician Cardiology 10/30/19 Consulting Software Engineer Relationship Specialty Start Date End Date Basilia Davis PA-C [address] [place] [address] PCP - General Family Medicine 10/15/16 [facility] Corey Jadiel [address] [place] [address] Referring Cardiology 04/05/19 Han Sadler MD [address] [place] [address] Primary Staff Physician Cardiology 10/30/19 Consulting Software Engineer Relationship Specialty Start Date End Date Basilia Davis PA-C [address] [place] [address] PCP - General Family Medicine 10/15/16 [facility] [address] [place] [address] Referring Cardiology 04/05/19 Han Sadler MD [address] [place] [address] Primary Staff Physician Cardiology 10/30/19 Consulting Software Engineer Relationship Specialty Start Date End Date Basilia Davis PA-C [address] [place] [address] PCP - General Family Medicine 10/15/16 [facility] Corey Jadiel [address] [place] [address] Referring Cardiology 04/05/19 Han Sadler MD [address] [place] [address] Primary Staff Physician Cardiology 10/30/19 Consulting Software Engineer Relationship Specialty Start Date End Date Basilia Davis PA-C [address] [place] [address] PCP - General Family Medicine 10/15/16 [facility] Corey Jadiel [address] [place] [address] Referring Cardiology 04/05/19 Han Sadler MD [address] [place] [address] Primary Staff Physician Cardiology 10/30/19 Consulting Software Engineer Relationship Specialty Start Date End Date Basilia Davis PA-C [address] [place] [address] PCP - General Family Medicine 10/15/16 [facility], Corey Jadiel [address] [place] [address] Referring Cardiology 04/05/19 Han Sadler MD [address] [place] [address] Primary Staff Physician Cardiology 10/30/19 Consulting Software Engineer Relationship Specialty Start Date End Date Basilia Davis PA-C [address] [place] [address] PCP - General Family Medicine 10/15/16 [facility], Corey Jadiel [address] [place] [address] Referring Cardiology 04/05/19 Han Sadler MD [address] [place] [address] Primary Staff Physician Cardiology 10/30/19 Consulting Software Engineer Relationship Specialty Start Date End Date Basilia Davis PA-C [address] [place] [address] PCP - General Family Medicine 10/15/16 [facility] Corey Jadiel [address] [place] [address] Referring Cardiology 04/05/19 Han Sadler MD [address] [place] [address] Primary Staff Physician Cardiology 10/30/19 Consulting Software Engineer Relationship Specialty Start Date End Date Basilia Davis PA-C [address] [place] [address] PCP - General Family Medicine 10/15/16 [facility], Corey Jadiel [address] [place] [address] Referring Cardiology 04/05/19 Han Sadler MD [address] [place] [address] Primary Staff Physician Cardiology 10/30/19 Consulting Software Engineer Relationship Specialty Start Date End Date Basilia Davis PA-C [address] [place] [address] PCP - General Family Medicine 10/15/16 [facility], Corey Jadiel [address] [place] [address] Referring Cardiology 04/05/19 Han Sadler MD [address] [place] [address] Primary Staff Physician Cardiology 10/30/19 Consulting Software Engineer Relationship Specialty Start Date End Date Basilia Davis PA-C [address] [place] [address] PCP - General Family Medicine 10/15/16 [facility], [facility] [address] [place] [address] Referring Cardiology 04/05/19 Han Sadler MD [address] [place] [address] Primary Staff Physician Cardiology 10/30/19 Consulting Software Engineer Relationship Specialty Start Date End Date Basilia Davis PA-C [address] [place] [address] PCP - General Family Medicine 10/15/16 [facility], Corey Jadiel [address] [place] [address] Referring Cardiology 04/05/19 Han Sadler MD [address] [place] [address] Primary Staff Physician Cardiology 10/30/19 Consulting Software Engineer Relationship Specialty Start Date End Date Basilia Davis PA-C [address] [place] [address] PCP - General Family Medicine 10/15/16 [facility], [facility] [address] [place] [address] Referring Cardiology 04/05/19 Han Sadler MD [address] [place] [address] Primary Staff Physician Cardiology 10/30/19 Consulting Software Engineer Relationship Specialty Start Date End Date Basilia Davis PA-C [address] [place] [address] PCP - General Family Medicine 10/15/16 [address]y Walters [address] [place] [address] Referring Cardiology 04/05/19 Han Sadler MD [address] [place] [address] Primary Staff Physician Cardiology 10/30/19 Consulting Software Engineer Relationship Specialty Start Date End Date Basilia Davis PA-C [address] [place] [address] PCP - General Family Medicine 10/15/16 Corey Walters [address] [place] [address] Referring Cardiology 04/05/19 Han Sadler MD [address] [place] [address] Primary Staff Physician Cardiology 10/30/19 Consulting Software Engineer Relationship Specialty Start Date End Date Basilia Davis PA-C [address] [place] [address] PCP - General Family Medicine 10/15/16 Corey Walters [address] [place] [address] Referring Cardiology 04/05/19 Han Sadler MD [address] [place] [address] Primary Staff Physician Cardiology 10/30/19 Consulting Software Engineer Relationship Specialty Start Date End Date Basilia Davis PA-C [address] [place] [address] PCP - General Family Medicine 10/15/16 Corey Walters MD [address] [place] [address] Referring Cardiology 04/05/19 Han Sadler MD [address] [place] [address] Primary Staff Physician Cardiology 10/30/19 Consulting Software Engineer Relationship Specialty Start Date End Date Basilia Davis PA-C [address] [place] [address] PCP - General Family Medicine 10/15/16 Corey Walters MD [address] [address] Referring Cardiology 04/05/19 Han Sadler MD [address] [place] [address] Primary Staff Physician Cardiology 10/30/19 FOR RECORDS PERTAINING TO PATIENTS WHO ARE OR HAVE BEEN ENROLLED IN A CHEMICAL DEPENDENCY/SUBSTANCEABUSE PROGRAM, SOME INFORMATION MAY BE OMITTED. This clinical summary was aggregated from multiple sources. Caution should be exercised in using it in the provision of clinical care. This summary normalizes information from multiple sources, and as a consequence, information in this document may materially change the coding, format and clinical context of patient data. In addition, data may be omitted in some cases. CLINICAL DECISIONS SHOULD BE BASED ON THE PRIMARY CLINICAL RECORDS. [employer] provides no warranty or guarantee of the accuracy or completeness of information in this document.
[2023-06-23] MEDS: Zolpidem Tartrate 5 MG Tablet PO (21:50)
== END | disposition home or self-care (01) ==
LOC: SL 20:00
PROVIDERS: PCP Family Medicine; Referring Provider Physician Assistant; Visit Provider Physician Assistant
DX: G47.33 Obstructive sleep apnea (adult) (pediatric) (principal)
CPT/HCPCS: 95810

== ENCOUNTER → 2023-07-21 | Outpatient (CLI) | payer MEDICARE, BC, SELFPAY ==
--- OUTSIDE RECORDS SUMMARY | 2023-07-21 21:16 | XMS RPT_ITS | CCD ---
Author Name Unknown Address [address] [place] [address] Organization [facility] Care Team Providers Care Machined Parts Quality Inspector Name Role Phone WEI BROWN Attending Unavailable STEPHANIEWEI MARTINEZ Primary Care Unavailable WEI BROWN Admitting Unavailable WEI BROWN Attending Unavailable WEI BROWN Primary Care Unavailable WEI BROWN Admitting Unavailable Basilia Davis PA-C Primary Care Provider Corey Walters Unavailable Han Sadler MD Unavailable [phone] Basilia Davis PA-C Primary Care Provider Corey Walters Unavailable Han Sadler MD Unavailable Basilia Davis PA-C Primary Care Provider Basilia Davis PA-C Primary Care Provider Corey Walters Unavailable Han Sadler MD Unavailable Han Sadelr MD Unavailable Corey Walters MD Unavailable [phone] Basilia DAVIS Attending Unavailable Basilia DAVIS Primary Care Unavailable Basilia DAVIS Primary Care Unavailable Basilia DAVIS Referring Unavailable Basilia DAVIS Primary Care Unavailable CHAYO, ALYSA H Attending Unavailable HAN SADLER Referring Unavailable Basilia DAVIS Primary Care Unavailable HAN SADLER Referring Unavailable Basilia DAVIS Primary Care Unavailable HAN SADLER Referring Unavailable Basilia DAVIS Primary Care Unavailable HAN SADLER Attending Unavailable HAN SADLER Referring Unavailable Basilia DAVIS Primary Care Unavailable HAN SADLER Referring Unavailable HAN SADLER Referring Unavailable Basilia DAVIS Primary [facility] Unavailable Allergies Allergy Classification Reported Allergen(s) Allergy Type Date of Onset Reaction(s) Facility (20 sources) Sulfonamides (Antibiotic); Translations: [SULFA (SULFONAMIDE ANTIBIOTICS)] Propensity to adverse reactions 4 [facility] Work Phone: Medications Current Medications Medication Drug [...] (congestive) heart failure] Onset: 11-12-2019 11-12-2019 Chronic Disorders of lipid metabolism (20 sources) Hypertriglyceridemia; [...] (2 sources) Drug therapy finding; Translations: [Other long-term (current) drug therapy] Episodic Other connective tissue [...] prosthesis, initial encounter] Onset: 03-03-2020 03-06-2020 Episodic Diabetes mellitus without complication (20 sources) Metabolic stress hyperglycemia; Translations: [Hyperglycemia, unspecified] Onset: 03-03-2020 03-06-2020 Episodic Fluid and electrolyte [...] Date Time Vital Sign Value Performing Clinician [facility] valentin 04-01-2023 10:11050 Body height 177 cm NA [employer] Work Phone: [facility] 04-01-2023 10:11-050 Body temperature 97.5 [degF] NA [employer] Work Phone: [facility] 04-01-2023 10:11-050 Body weight 86.64 kg NA [employer] Work Phone: [facility] 04-01-2023 10:11-0500 Diastolic blood pressure 70 mm[Hg] NA Davis PA-C Work Phone: [facility] 04-01-2023 10:11-0500 Heart rate 60 /min NA Davis PA-C Work Phone: [facility] 04-01-2023 10:11-0500 Respiratory rate 16 /min NA Davis PA-C Work Phone: [facility] 04-01-2023 10:11-0500 SaO2% (BldA) [Mass fraction] 97 % NA Davis PA-C Work Phone: [facility] 04-01-2023 10:11-0500 Systolic blood pressure 142 mm[Hg] NA Davis PA-C Work Phone: [facility] 09-08-2022 13:23-0400 Body height 180.3 cm Alysa Dominguez MD Work Phone: [facility] 09-08-2022 13:23-0400 Body weight 84.82 kg Alysa Dominguez MD Work Phone: [facility] 09-08-2022 13:23-0400 Diastolic blood pressure 74 mm[Hg] Alysa Dominguez MD Work Phone: [facility] 09-08-2022 13:23-0400 Heart rate 64 /min Alysa Dominguez MD Work Phone: [facility] 09-08-2022 13:23-0400 Systolic blood pressure 136 mm[Hg] Alysa Dominguez MD Work Phone: [facility] 05-25-2022 15:23-0500 Body height 177.8 cm Han Sadler MD Work Phone: [facility] 05-25-2022 15:23-0500 Body weight 86.64 kg Han Sadler MD Work Phone: [facility] 05-25-2022 15:23-0500 Diastolic blood pressure 77 mm[Hg] Han Sadler MD Work Phone: [facility] 05-25-2022 15:23-0500 Heart rate 81 /min Han Sadler MD Work Phone: [facility] 05-25-2022 15:23-0500 SaO2% (BldA) [Mass fraction] 98 % Han Sadler MD Work Phone: [facility] 05-25-2022 15:23-0500 Systolic blood pressure 133 mm[Hg] Han Sadler MD Work Phone: [facility] 03-23-2022 08:06-0500 Body height 177 cm NA Davis PA-C Work Phone: [facility] 03-23-2022 08:06-0500 Body weight 87.09 kg NA Davis PA-C Work Phone: [facility] 03-23-2022 08:06-0500 Diastolic blood pressure 72 mm[Hg] NA Davis PA-C Work Phone: [facility] 03-23-2022 08:06-0500 Heart rate 65 /min NA Davis PA-C Work Phone: [facility] 03-23-2022 08:06-0500 Respiratory rate 16 /min NA Davis PA-C Work Phone: [facility] 03-23-2022 08:06-0500 SaO2% (BldA) [Mass fraction] 96 % NA Davis PA-C Work Phone: [facility] 03-23-2022 08:06-0500 Systolic blood pressure 130 mm[Hg] NA Davis PA-C Work Phone: [facility] Encounters Encounter Date Encounter Type Care Provider Facility Start: 07-12-2023 Telephone encounter Basilia Martinez Davis PA-C Work Phone: [facility] Procedures Date Procedure Procedure Detail Performing Clinician Start: 03-30-2023 Lipid 1996 panel - S paul or Plasma NA Davis PA-C Work Phone: Start: 11-10-2020 Adult depression scr eening assessment Kandice Martinez CONFERENCE TRANSLATOR.BLANCHING MACHINE OPERATOR Work Phone: Start: 11-05-2020 Lipid 1996 panel - S paul or Plasma NA Ryan BANEGAS Work Phone: Start: 03-27-2010 Colonoscopy Kandice Masha salinas CONFERENCE TRANSLATOR.BLANCHING MACHINE OPERATOR Work Phone: Plan of Treatment Date Care Activity Detail Author Start: 11-15-2032 Urine microalbumin profile DTa P,Tdap,Td Vaccine (3 - Td or Tdap) [facility] Start: 03-30-2028 Lipid 1996 panel - S paul or Plasma Lipid Screening [facility] Start: 03-30-2028 Lipid panel Lipid Screening [facility] Start: 03-30-2028 Prostate Cancer Scre ening Discussion Prostate Cancer Screening Discussion [facility] Start: 03-30-2028 Prostate specific an tigen measurement Prostate Cancer Screening Discussion [facility] Start: 04-20-2027 Urine microalbumin profile [facility] Start: 06-15-2026 Screening for malign ant neoplasm of colon Cologuard (FIT-DNA) [facility] Start: 03-30-2026 Diabetes Screening Diabetes Screenin [facility] Start: 11-05-2025 Lipid 1996 panel - S paul or Plasma Lipid Screening [facility] Start: 11-05-2025 LIPID SCREEN LIPID SCREEN [facility] Start: 03-23-2025 DIABETES SCREEN DIABETES SCREEN [facility] Start: 03-23-2025 Diabetes Screening Diabetes Screenin [facility] Start: 04-01-2024 Annual PCP Team [employer] Engraver mike Disease Visit Annual PCP Team Chronic Disease Visit [facility] Start: 04-01-2024 Covid-19 Vaccine ( season) Covid-19 Vaccine ( season) [facility] Immunizations Immunization Date Immunization Notes Care Provider Dorinda rey 02-12-2023 influenza (HD-IIV4) vaccine, age 65+ yr, high dose, quadrivalent, PF (FLUZONE HIGH-DOSE) GOPAL Davis PA-C Work Phone: [facility] 12-28-2022 hepatitis A and hepa titis B vaccine GOPAL Davis PA-C Work Phone: [facility] 11-27-2022 hepatitis A and hepa titis B vaccine NA Davis PA-C Work Phone: [facility] 11-15-2022 hepatitis A and hepa titis B vaccine NA Davis PA-C Work Phone: [facility] 11-15-2022 tetanus toxoid, redu radha diphtheria toxoid, and acellular pertussis vaccine, adsorbed NA Davis PA-C Work Phone: [facility] 11-06-2022 typhoid vaccine, roman e, oral NA Davis PA-C Work Phone: [facility] 02-16-2022 influenza, high-dose , quadrivalent vaccine (FLUZONE HIGH DOSE QUADRIVALENT) NA Davis PA-C Work Phone: [facility] 02-16-2022 influenza virus vacc ine, unspecified formulation NA Davis PA-C Work Phone: [facility] 03-19-2021 COVID-19 original vaccine, full dose, monovalent (MODERNA) Wei Scruggs MD Work Phone: [facility] 01-22-2021 Influenza, injectabl e, Madin [place] Canine Kidney, preservative free, quadrivalent NA Davis PA-C Work Phone: [facility] 07-21-2020 COVID-19 vaccine, ag e 12+ yr (PFIZER-BIONTECH - PURPLE TOP) Kandice Reay CONFERENCE TRANSLATOR.BLANCHING MACHINE OPERATOR Work Phone: [facility] 06-30-2020 COVID-19 vaccine, ag e 12+ yr (PFIZER-BIONTECH - PURPLE TOP) Kandice Reay CONFERENCE TRANSLATOR.BLANCHING MACHINE OPERATOR Work Phone: [facility] 02-12-2020 influenza, injectabl e, quadrivalent, preservative free Kandice Reay CONFERENCE TRANSLATOR.BLANCHING MACHINE OPERATOR Work Phone: [facility] 02-02-2020 pneumococcal polysaccharide vaccine, 23 valent Kandice Reay CONFERENCE TRANSLATOR.BLANCHING MACHINE OPERATOR Work Phone: [facility] 03-16-2019 influenza virus vacc ine, unspecified formulation Kandice Reay CONFERENCE TRANSLATOR.[facility] Work Phone: [facility] 03-15-2019 Influenza, injectabl e, Madin [place] Canine Kidney, quadrivalent with preservative Kandice Reay CONFERENCE TRANSLATOR.BLANCHING MACHINE OPERATOR Work Phone: [facility] 05-21-2018 zoster vaccine recombinant Kandice Reay CONFERENCE TRANSLATOR.[facility] Work Phone: [facility] 03-05-2018 Influenza, injectabl e, Madin [place] Canine Kidney, preservative free, quadrivalent Kandice Reay CONFERENCE TRANSLATOR.BLANCHING MACHINE OPERATOR Work Phone: [facility] 11-30-2017 zoster vaccine recombinant Kandice Reay CONFERENCE TRANSLATOR.[facility] Work Phone: [facility] 04-20-2017 tetanus and diphther ia toxoids, adsorbed, preservative free, for adult use (2 Lf of tetanus toxoid and 2 Lf of diphtheria toxoid) Kandice Reay CONFERENCE TRANSLATOR.[facility] Work Phone: [facility] 04-20-2017 tetanus toxoid, redu radha diphtheria toxoid, and acellular pertussis vaccine, adsorbed Kandice Reay CONFERENCE TRANSLATOR.[facility] Work Phone: [facility] 03-08-2016 influenza, injectabl e, quadrivalent, preservative free Kandice Reay CONFERENCE TRANSLATOR.[facility] Work Phone: [facility] 01-06-2016 zoster vaccine, live Kandice Reay CONFERENCE TRANSLATOR.BLANCHING MACHINE OPERATOR Work Phone: [facility] 04-22-2015 influenza, seasonal, injectable, preservative free Kandice Reay CONFERENCE TRANSLATOR.[facility] Work Phone: [facility] 05-20-2009 novel influenza-H1N1 -09, preservative-free, injectable Kandice Reay CONFERENCE TRANSLATOR.[facility] Work Phone: [facility] Payers Date Payer Category Payer Medicare MEDICARE MEDICAR E A AND B [id number] 2022-[facility] [phone] [place] [address] Medicare [id number] 2022 Medicare [id number] 2022 Medicare [id number] 2015 Unknown MMO MMO [employer] [id number] 2015-Present [phone] [address] [place] [address] PPO [id number] 2015 Unknown [id number] 1957 Unknown [id number] Unknown [id number] Social History Date Type Detail Facility Start: 12-13-2017 End: 03-23-2022 Tobacco smoking status AKIS Never smoked tobacco [facility] Start: 04-03-2021 End: 04-01-2023 Alcohol intake Current drinker of alcohol (finding) [facility] Start: 03-04-2020 History SDOH Financial 5 [facility] Start: 03-04-2020 History SDOH Food Worry 1 [facility] Start: 03-04-2020 History SDOH Transpo rt Med 2 [facility] Start: 1955 Sex Assigned At Not on file [facility] Start: 12-13-2017 End: 03-23-2022 Tobacco use and exposure Smokeless tobacco non-user [facility] Start: 03-13-2022 End: 03-23-2022 Exposure to SARS-CoV-2 (event) Not sure [facility] Start: 09-08-2022 End: 04-01-2023 History of Social function [facility] Work Phone: Start: 09-08-2022 End: 04-01-2023 Tobacco use panel [facility] Work Phone: How hard is it for y ou to pay for the very basics like food, housing, medical care, and heating Not hard at all [facility] Work Phone: (I/We) worried jessica er (my/our) food would run out before (I/we) got money to buy more. Never true [facility] Work Phone: Start: 03-31-2019 Sexual orientation Heterosexual (theresa stratton) [facility] Medical Equipment Procedure Code Equipment Code Equipment Original Text Equipment Identifier Dates Band Cross Ancor e 25mm 25mm Annuloplasty Flexible Abernathy Chordal Guide - [id number] Start: 03-03-2020 Taylor Thk1.65mm P tfe 4x.5in Cardiovascular Sterile - [id number] Start: 03-03-2020 Valve Biocor Fle xfit 31mm 29mm Porcine Pericardial 20mm Mitral - [id number] Start: 03-03-2020 Clinical Notes 03-03-2020 to 07-13-2023 Telephone Encounter - Amy Cosby LPN - 07/13/2023 10:54 AM ESTTelephone Encounter - Anabell Mckenna - 07/12/2023 2:54 PM ESTTelephone Encounter - Anabell Jeffrey RN - 07/12/2023 11:15 AM EST Note Date & Type Note Facility 07-13-2023 Miscellaneous Notes Order faxed over via [employer]. Spoke with spouse they prefer this be faxed to [facility] referral has been placed for [facility]. Please fax order Appointments need to be made in order for Prior auth to work them. Patient's Alanna calling to ask for update on status referral for patient's sleep study: 84118 (CPT ) - POLYSOM 6/>YRS SLEEP 4/> ADDL NIKOLAI ATTND She would like to get this scheduled for patient, once approved. Thank you. documented in this encounter [facility] 06-13-2023 Miscellaneous Notes Sanjay from [facility] calling asking for copy of cardiology notes and ECHO from 06/02/2023. Printed and faxed to [phone] as requested. documented in this encounter [facility] 06-02-2023 Note HNO ID: [id number] Author: ?, ?, ? Service: ? Author Type: ? Type: Progress Notes Filed: 06/02/2023 13:08 Note Text: HOLTER MONITOR APPLICATION Patient Name: Tre Mikhail [facility] Number: [id number] Chest is cleansed with alcohol Skin prep [...] or 48 hours 6.) Call with problems [phone] OR [phone] Patient expresses good verbal understanding of instructions Gerda Pedraza [facility] 06-02-2023 Note Education (CARDMN) TRE IBRAHIM ([id number]) 1955 M Date Time Provider Department 06/02/23 1:00 PM [facility]RHYTHMIA MONITORING LAB CARDMN Reason for Visit: Holter Monitor Application [261] Cmt: 48 hour Visit Diagnoses:Chronic systolic heart failure (HCC) [I50.22] PVC (premature ventricular contraction) [I49.3] Order(s):HOLTER MONITOR 48 HOUR [[id number]] Order #: [id number] During your visit today, we recorded the [...] 20 mg by mouth as needed. - Vyfff-DX8-FBL-PUQ-CM1-Ixz-Astx (KRILL OIL) 1000-130(40-80) mg cap Take 500 mEq by mouth once daily. - ynryneft-zsmte-nwu-boron-hyal 500-66.7-500-2 mg tab Take 1,500 mg by [...] Encounter Status:Closed by GERDA PEDRAZA on 06/02/23 [facility] 06-02-2023 Note HNO ID: [id number] Author: HAN SADLER MD Service: ? Author Type: Physician Type: Progress Notes Filed: 06/27/2023 10:56 Note Text: [facility] [place] [facility] SECTION OF HEART FAILURE and CARDIAC TRANSPLANT MEDICINE OUTPATIENT VISIT DATE June 02, 2023 OUTPATIENT VISIT TYPE Established Patient PRIMARY CARE PHYSICIAN: Basilia Davis [address] [place] [address] CHIEF COMPLAINT: HF F/u NURSING INTAKE (Patient?s [...] 20 mg by mouth as needed.Disp: Rfl: Inxbp-NM6-ZPW-QSM-QC7-Ozn-Astx (KRILL OIL) 1000-130(40-80) mg capTake 500 mEq by mouth once daily.Disp: Rfl: arwreslp-gxqdi-fpx-boron-hyal 500-66.7-500-2 mg tabTake 1,500 mg by mouth once daily.Disp: Rfl: Lutein 20 mg capTake 1 caps (more content not included)... [facility] 06-01-2023 Miscellaneous Notes The following approved medication requests have been transmitted electronically. Requested Prescriptions Signed Prescriptions Disp Refills sucralfate (CARAFATE) 1 gram tablet 120 tablet 3 Sig: Take 1 tablet by mouth before meals and at bedtime. Authorizing Provider: SHERIF NICHOLS DO documented in this encounter [facility] 04-01-2023 Note HNO ID: [id number] Author: Basilia DAVIS PA-C Service: ? Author Type: Physician Principal Clerk Typist Type: Progress Notes Filed: 06/09/2023 18:52 Note [...] Gastroesophageal reflux d (more content not included)... [facility] 04-01-2023 History of Present illness Narrative 67 [...] SHELLY Davis PA-C documented in this encounter [facility] 03-29-2023 Miscellaneous Notes Get Medical Advice on 03/29/23 LIPID PANEL BASIC COMP METABOLIC PANEL PSA/PROSTSPECAG DIAG HGB A1C Thanks, Shubham Davis PA-C documented in this encounter [facility] 11-08-2022 Miscellaneous Notes is aware of need. She had messaged in another encounter regarding this. He is not immune to hep a and hep b. The rest are ok Patient travel labs have come back and are in scanned documents for review. Can FeedHenryhart patient with results. documented in this encounter [facility] 10-28-2022 Miscellaneous Notes Faxed order. See 's my chart. Needs sent to [facility] Hep A titer for travel. (See FeedHenryhart message of .) documented in this encounter [facility] 10-28-2022 Miscellaneous Notes Patient asking for travel labs. documented in this encounter [facility] 09-08-2022 Note HNO ID: [id number] Author: Alysa Dominguez MD Service: ? Author Type: Physician Type: Progress Notes Filed: 09/25/2022 4:57 PM Note Text: [facility] [place] [facility] Department of Cardiovascular Medicine SECTION OF CARDIAC PACING and ELECTROPHYSIOLOGY OUTPATIENT VISIT DATE September 08, 2022 OUTPATIENT VISIT TYPE CONSULTATION PRIMARY CARE PHYSICIAN: Basilia Davis [address] [place] [address] REFERRING PHYSICIAN Han Sadler [address] [facility] [address] CHIEF COMPLAINT: atrial fibrillation PVC's HISTORY OF [...] Take 20 mg by mouth as needed. Lxunf-UK6-UUY-DOB-GC2-Kbf-Astx (KRILL OIL) 1000-130(40-80) mg cap Take 500 mEq by mouth once daily. yqmzrfje-zurkx-ggn-boron-hyal 500-66.7-500-2 mg tab Take 1,500 mg by mouth once daily. Lutein 20 mg cap Take 1 capsule by mouth once daily. thiamine (VITAMIN B1) 100 mg tablet Take 1 tablet by mouth once daily. Cholecalciferol, Vitamin D3, 5,000 unit cap Take 1 capsule by mouth once daily. coenzyme Q10 (COENZYME Q-10) (more content not included)... [facility] 09-08-2022 History of Present illness Narrative Images from the original note were not included. [facility] [place] [facility] Department of Cardiovascular Medicine SECTION OF CARDIAC PACING and ELECTROPHYSIOLOGY OUTPATIENT VISIT DATE September 08, 2022 OUTPATIENT VISIT TYPE CONSULTATION PRIMARY CARE PHYSICIAN: Basilia Davis [address] [place] [address] REFERRING PHYSICIAN Han Sadler [address] [facility] [address] CHIEF COMPLAINT: atrial fibrillation PVC's HISTORY OF [...] Take 20 mg by mouth as needed. Clmjw-HS8-JAK-EHY-XO1-Vfg-Astx (KRILL OIL) 1000-130(40-80) mg cap Take 500 mEq by mouth once daily. lpmribfm-rjhrn-mox-boron-hyal 500-66.7-500-2 mg tab Take 1,500 mg by [...] - Exam was compared with the prior CC echocardiographic exam performed on 04/16/2021. On direct [...] Alysa Dominguez MD documented in this encounter [facility] 08-09-2022 Miscellaneous Notes Completed form faxed back Completed and returned to nursing desk. Shubham Davis PA-C [facility] sends form regarding stopping Eliquis for procedure. Placed on Shubham's desk for review. documented in this encounter [facility] 08-06-2022 Note HNO ID: [id number] Author: Agnes Vasquez Service: ? Author Type: ? Type: Progress Notes Filed: 08/06/2022 4:33 PM Note Text: POPULATION HEALTH NAVIGATION OUTREACH Action/[facility] [place] Support: Called pt to schedule an appt in Pain Management. See's provider closer to home, Dr. Juarez in [place]. Patient Identified by Name and : YES, [...] Agnes Vasquez August 06, 2022 4:32 PM [facility] 08-06-2022 History of Present illness Narrative POPULATION HEALTH NAVIGATION OUTREACH Action/[facility] Support: Called pt to schedule an appt in Pain Management. See's provider closer to home, Dr. Juarez in [place]. Patient Identified by Name and : YES, [...] 2022 4:32 PM documented in this encounter [facility] 08-06-2022 Note Patient Outreach (BALA SNIDER) TRE IBRAHIM ([id number]) 1955 M Date Time Provider Department 08/06/22 NO PCP NETNAV During your visit today, we recorded the following information about you: Agnes Vasquez 08/06/2022 4:33 PM Signed POPULATION HEALTH NAVIGATION OUTREACH Action/[facility] Support: Called pt to schedule an appt in Pain Management. See's provider closer to home, Dr. Juarez in [place]. Patient Identified by Name and : YES, [...] 20 mg by mouth as needed. - Ybwhx-OG2-ECU-HJS-KT8-Ktv-Astx (KRILL OIL) 1000-130(40-80) mg cap Take 500 mEq by mouth once daily. - dbojhsny-alryo-jre-boron-hyal 500-66.7-500-2 mg tab Take 1,500 mg by [...] Encounter Status:Closed by AGNES VASQUEZ on 08/06/22 [facility] 08-05-2022 Miscellaneous Notes Referral faxed, pt aware [...] if referral is received by end of day today. Referral pended. Diagnosis needed. Alanna requesting call back at [phone] with provider response. Eduarda Aldana RN documented in this encounter [facility] 07-22-2022 Note HNO ID: [id number] Author: Agnes Vasquez Service: ? Author Type: ? Type: Progress Notes Filed: 07/22/2022 5:00 PM Note Text: POPULATION HEALTH NAVIGATION OUTREACH Action/[facility] [place] Support: Called pt to schedule an appt in Pain Management. Lvm for pt to call [phone] for scheduling. Patient Identified by Name and [...] Agnes Vasquez July 22, 2022 4:55 PM [facility] 07-22-2022 Note Patient Outreach (NE TNAV) TRE IBRAHIM ([id number]) 1955 M Date Time Provider Department 07/22/22 NO PCP NETNAV During your visit today, we recorded the following information about you: Agnes Vasquez 07/22/2022 5:00 PM Signed POPULATION HEALTH NAVIGATION OUTREACH Action/[facility] Support: Called pt to schedule an appt in Pain Management. Lvm for pt to call [phone] for scheduling. Patient Identified by Name and [...] 20 mg by mouth as needed. - Zcejr-KJ0-PPO-WKF-KI0-Lrp-Astx (KRILL OIL) 1000-130(40-80) mg cap Take 500 mEq by mouth once daily. - vmgjwheo-vobwa-vtw-boron-hyal 500-66.7-500-2 mg tab Take 1,500 mg by [...] Encounter Status:Closed by AGNES VASQUEZ on 07/22/22 [facility] 07-21-2022 Miscellaneous Notes Get Medical Advice on 07/20/22 CONSULT TO OLIVIA MGT Asking to send to Dr. Larry Renteria, Shubham Davis PA-C documented in this encounter [facility] 07-08-2022 Miscellaneous Notes The following approved medication [...] Sherif Nichols DO documented in this encounter [facility] 05-26-2022 Miscellaneous Notes Pt has refills left on previous prescriptions but wants to have 90 with 3 refills. Please review and advise pt if willing to do. Amirah Almazan LPN documented in this encounter [facility] 05-26-2022 Miscellaneous Notes Pt asking for a [...] Amirah Almazan LPN documented in this encounter [facility] 05-25-2022 History of Present illness Narrative Images from the original note were not included. [facility] V[facility] [place] [facility] SECTION OF HEART FAILURE and CARDIAC TRANSPLANT MEDICINE OUTPATIENT VISIT DATE May 25, 2022 OUTPATIENT VISIT TYPE Established Patient PRIMARY CARE PHYSICIAN: Basilia Davis [address] [place] [address] CHIEF COMPLAINT: HF f/u NURSING INTAKE (Patient [...] 20 mg by mouth as needed.^Disp: ^Rfl: Vmeis-UT5-TUM-YXS-RN2-Ogm-Astx (KRILL OIL) 1000-130(40-80) mg cap^Take 500 mEq by mouth once daily.^Disp: ^Rfl: lkxpxrjr-ueipb-arm-boron-hyal 500-66.7-500-2 mg tab^Take 1,500 mg by mouth [...] LYMPH % 20 - 30 % 22.2 Glascock% 9.9 EOS % 1 - 5 % [...] Right ventricular systolic function is low normal. DYALIN. Post mitral valve replacement. Biocor prosthetic mitral [...] were present. Isolated VEs were frequent (5.1%, 12424), VE Couplets were rare (<1.0%, 2648), and [...] limited non-diagnostic CTAC: - Coronary calcifications visualized. [facility] 02/27/2020: no significant CAD IMPRESSION: 66 [...] was >45 minutes CC: MAKENZIE Lugo MD (car body inspector at [employer]) Marino Schwartz Addendum: Discussed with EP and since pauses were at night and asymptomatic this is not a concern. ECG today also reviewed by EP and + NSR Han Sadler MD May 25, 2022 5:56 PM documented in this encounter [facility] 04-30-2022 Miscellaneous Notes Call from pharmacy requesting refill. Requested Prescriptions Pending Prescriptions Disp Refills sacubitril-valsartan (ENTRESTO) 24-26 mg tablet 180 tablet 3 Sig: TAKE 1 TABLET BY MOUTH TWICE DAILY. Patient last seen 04/16/21 Carlos Diehl documented in this encounter [facility] 04-07-2022 Miscellaneous Notes Prescriber portion of [facility] PAF for Entresto completed. Will fax along with medication/allergy/problem list. Veronica Gamble RN April 07, 2022 1:50 PM documented in this encounter [facility] 04-05-2022 Miscellaneous Notes The following approved medication requests have been transmitted electronically. Requested Prescriptions Signed Prescriptions Disp Refills apixaban (ELIQUIS) 5 mg tab(s) 60 tablet 5 Sig: Take 1 tablet by mouth twice daily. Basilia Davis PA-C documented in this encounter [facility] 03-23-2022 Nurse Note EVENT MONITOR DISPOSABLE PATCH INSTRUCTIONS Patient Name: Tre Ibrahim [facility] Number: [id number] Skin prepped and cleansed with alcohol Patch secured to prepped area Monitor Activated Serial #: [id number] Patient Instructed: Prescribed order timeframe Bathing guidelines Usage of event button and diary documentation Return of monitor at the end of prescribed order Call with problems [phone] or [phone] ext. [phone] Patient expresses a good understanding of instructions Kita Glynn documented in this encounter [facility] 03-23-2022 History of Present illness Narrative 67 year old male with c/oStephen J Mauricio is a 67 year old male here for a Medicare Initial Annual Wellness Visit In general, health is: Good Concerns with tiredness, difficulties with sexual function, balance, teeth/dentures: Not at all Taylor anxious, stressed, angry, irritable, lonely, isolated, or [...] Abs Lymph 1.00 - 4.00 k/uL 1.33 Glascock% 8.2 9.9 Abs Glascock <0.87 k/uL 0.49 Eosin% % 4.7 Abs [...] Take 20 mg by mouth as needed. Koppk-SX5-LKC-AEG-XW0-Upc-Astx (KRILL OIL) 1000-130(40-80) mg cap Take 500 mEq by mouth once daily. wjdrfgij-pteih-lfy-boron-hyal 500-66.7-500-2 mg tab Take 1,500 mg by [...] 10 mL INTRAVENOUS DIRECTED PRGretta Sadler MD perflutren lipid microspheres 1.3 mL in NaCl (PF) 0.9% 10 mL injection (DEFINITY) INTRAVENOUS DIRECTED PRGretta Sadler MD sodium chloride 0.9 % (flush) 10 mL (BD POSIFLUSH) 10 mL INTRAVENOUS DIRECTED MANJU Sadler MD HEPATITIS C SCREENING Never done [...] Basilia Davis PA-C documented in this encounter [facility] 02-24-2022 Miscellaneous Notes Form completed and given to Carlos Diehl so Dr. Sadler will sign and then fax. Louann Bull RN February 24, 2022 3:52 PM I received another fax in regards to this- I just wanted to check on the status. I have placed the fax in the nurse inbox. Carlos Received a patient asssistance form for [employer] med for pt. Placed in the Nurses Inbox. Thank you. Carlos documented in this encounter [facility] 01-19-2022 Miscellaneous Notes Due for annual follow [...] Patient last appointment: 04/03/21 Patient Phone numbers: [phone] (home) Request is for script(s) to be escript to mail order [facility]. Leandra Levi documented in this encounter [facility] 01-15-2022 Miscellaneous Notes Call from pharmacy requesting refill. Requested Prescriptions Pending Prescriptions Disp Refills metoprolol succinate ER (TOPROL XL) 25 mg 24 hr tablet 90 tablet 3 Sig: Take 1 tablet by mouth once daily. sacubitril-valsartan (ENTRESTO) 24-26 mg tablet 180 tablet 3 Sig: TAKE 1 TABLET BY MOUTH TWICE DAILY. Patient last seen 04/16/21 Carlos Diehl documented in this encounter [facility] 12-12-2021 Miscellaneous Notes calling with questions on which pharmacy has Paxvloid in stock. denies any new or worsening symptoms of which a provider is not aware:Yes. Reason for call: Patient's states that patient got paxvloid ordered but their [facility] does not have it in stock. [facility] is currently [facility] if [facility]. Spouse is wondering if other pharmacies have it Outcome: Advised patient to call [facility] pharmacy at [facility] to see if they have stock, also advised [facility] [place] [facility]. documented in this encounter [facility] documented as of this encounter (statuses as of 11/13/2021) [facility] History of Past illness Narrative* Problem Noted [...] of this encounter (statuses as of 12/12/2021) [facility] History of Past illness Narrative* Problem Noted [...] of this encounter (statuses as of 01/15/2022) [facility] History of Past illness Narrative* Problem Noted [...] of this encounter (statuses as of 01/20/2022) [facility] History of Past illness Narrative* Problem Noted [...] of this encounter (statuses as of 01/29/2022) [facility] History of Past illness Narrative* Problem Noted [...] of this encounter (statuses as of 02/24/2022) [facility] History of Past illness Narrative* Problem Noted [...] of this encounter (statuses as of 03/24/2022) [facility] History of Past illness Narrative* Problem Noted [...] of this encounter (statuses as of 04/05/2022) [facility] History of Past illness Narrative* Problem Noted [...] of this encounter (statuses as of 04/07/2022) [facility] History of Past illness Narrative* Problem Noted [...] of this encounter (statuses as of 05/03/2022) [facility] History of Past illness Narrative* Problem Noted [...] of this encounter (statuses as of 05/17/2022) [facility] History of Past illness Narrative* Problem Noted [...] of this encounter (statuses as of 05/25/2022) [facility] History of Past illness Narrative* Problem Noted Date Resolved Date On mechanically assisted ventilation 03/03/2020 03/04/2020 Overview: Assessment: intubated and sedated from OR Plan: WTE Cardiac insufficiency 03/03/2020 03/04/2020 Overview: See care coordination note Postoperative hypotension 03/03/20202019 Overview: See care coordination note Pre-op testing 02/28/2020 03/06/2020 [facility] PRE-OP CHECKLIST Surgeon: Marion Schwartz M.D. Informed Consent Completed: Yes STS [...] of this encounter (statuses as of 05/26/2022) [facility] History of Past illness Narrative* Problem Noted [...] of this encounter (statuses as of 05/26/2022) [facility] History of Past illness Narrative* Problem Noted [...] of this encounter (statuses as of 05/26/2022) [facility] History of Past illness Narrative* Problem Noted [...] of this encounter (statuses as of 07/22/2022) [facility] History of Past illness Narrative* Problem Noted [...] of this encounter (statuses as of 08/05/2022) [facility] History of Past illness Narrative* Problem Noted [...] of this encounter (statuses as of 08/06/2022) [facility] History of Past illness Narrative* Problem Noted [...] of this encounter (statuses as of 08/09/2022) [facility] History of Past illness Narrative* Problem Noted [...] of this encounter (statuses as of 09/03/2022) [facility] History of Past illness Narrative* Problem Noted [...] of this encounter (statuses as of 09/25/2022) [facility] History of Past illness Narrative* Problem Noted [...] of this encounter (statuses as of 10/28/2022) [facility] History of Past illness Narrative* Problem Noted [...] of this encounter (statuses as of 11/08/2022) [facility] History of Past illness Narrative* Problem Noted [...] of this encounter (statuses as of 11/16/2022) [facility] History of Past illness Narrative* Problem Noted [...] of this encounter (statuses as of 01/12/2023) [facility] History of Past illness Narrative* Problem Noted [...] of this encounter (statuses as of 01/15/2023) [facility] History of Past illness Narrative* Problem Noted [...] of this encounter (statuses as of 03/30/2023) [facility] History of Past illness Narrative* Problem Noted [...] of this encounter (statuses as of 04/02/2023) [facility] History of Past illness Narrative* Problem Noted [...] as of this encounter (statuses as of 06/24/2023) [facility] History of Past illness Narrative* Problem Noted [...] as of this encounter (statuses as of 07/13/2023) [facility] History of Past illness Narrative* Problem Noted [...] as of this encounter (statuses as of 07/15/2023) [facility] Diagnosis Paroxysmal atrial fibrillation (HCC)- Primary Atrial fibrillation Generalized anxiety disorder Dilated cardiomyopathy (HCC) Other primary cardiomyopathies Gastroesophageal reflux disease without esophagitis Esophageal reflux Stress hyperglycemia Other abnormal blood chemistry Hypertriglyceridemia Pure hyperglyceridemia Current use of proton pump inhibitor Encounter for long-term (current) use of other medications Pain of toe of left foot Pain in limb documented in this encounter [facility]* Diagnosis Chronic systolic heart failure (HCC)- Primary Chronic systolic heart failure documented in this encounter [facility] note* Diagnosis Paroxysmal atrial fibrillation (HCC)- Primary [...] Other abnormal glucose [facility] Diagnosis Paroxysmal atrial fibrillation (HCC) Atrial fibrillation [facility] Diagnosis Dilated cardiomyopathy (HCC) Other primary cardiomyopathies [facility] Diagnosis Paroxysmal atrial fibrillation (HCC)- Primary Atrial fibrillation [facility] Diagnosis Sinus pause- Primary Other heart [...] specified cardiac dysrhythmias [facility] Diagnosis Paroxysmal atrial fibrillation (HCC) Atrial fibrillation Dilated cardiomyopathy (HCC) Other primary cardiomyopathies Chronic systolic heart failure (HCC) Chronic systolic heart failure Generalized anxiety disorder [facility] Diagnosis Paroxysmal atrial fibrillation (HCC) Atrial fibrillation [facility] Arthritis of right wrist- Primary Unspecified arthropathy, forearm [facility] Diagnosis DDD (degenerative disc disease), cervical- Primary Degeneration of cervical intervertebral disc Chronic neck pain Cervicalgia [facility] Diagnosis PVC's (premature ventricular contractions)- Primary Other premature beats Sinus pause Other heart block [facility]* Diagnosis Screening for HIV (human immunodeficiency virus)- Primary Special screening examination for other specified viral diseases [facility] Diagnosis Screening for viral disease- Primary Special screening examination for unspecified viral disease [facility] Diagnosis Right wrist pain- Primary Pain in joint, forearm Pain and swelling of right wrist [facility] Diagnosis Anxiety- Primary Anxiety state, unspecified [facility] Diagnosis Chronic systolic heart failure (HCC)- Primary Chronic systolic heart failure Dilated cardiomyopathy (HCC) Other primary cardiomyopathies Generalized anxiety disorder Hypertriglyceridemia Pure hyperglyceridemia Screening for prostate cancer Special screening for malignant neoplasm of prostate IFG (impaired fasting glucose) Impaired fasting glucose Bladder-neck obstruction [facility] Diagnosis Encounter for immunization- Primary Need [...] malignant neoplasms, colon documented in this encounter [facility] for referral (narrative)* Outpatient Procedure (Routine) - Authorized Specialty Diagnoses / Procedures Referred By Contac t Referred To Contact [facility] Diagnoses Chronic systolic heart failure (HCC) Procedures ECHO ECHO TTHRC R-T 2D W/WOM-MODE COMPL SPEC&COLR D Han Sadler MD [address] [place] [address] [facility] [place] [id number] Referral ID Status Reason Start Date Expiration Date Visits Requested Visits Authorized [id number] Authorized Auto-Generat ed Referral 01/29/2022 01/29/2023 1 1 * Outpatient Procedure (Routine) - Authorized Specialty Diagnoses / Procedures Referred By Contac t Referred To Contact [facility] Diagnoses Chronic systolic heart failure (HCC) Procedures ECG COMPLETE ECG ROUTINE ECG W/LEAST 12 LDS W/I&R Han Sadler MD [address] [place] [address] [facility] [place] [address] Referral ID Status Reason Start Date Expiration Date Visits Requested Visits Authorized [id number] Authorized Auto-Generat ed Referral 01/29/2022 01/29/2023 1 1 [facility] for referral (narrative)* Outpatient Procedure (Routine) - Authorized Specialty Diagnoses / Procedures Referred By Contac t Referred To Contact [facility] Diagnoses Paroxysmal atrial fibrillation (HCC) Procedures ECG COMPLETE ECG ROUTINE ECG W/LEAST 12 LDS W/I&R Alysa Dominguez MD [address] [place] [address] [address] Referral ID Status Reason Start Date Expiration Date Visits Requested Visits Authorized [id number] Authorized Auto-Generat ed Referral 05/25/2022 05/25/2023 1 1 [facility] Outpatient Procedure (Routine) - Pending Review Specialty Diagnoses / Procedures Referred By Contac t Referred To Contact [facility] Diagnoses Chronic systolic (congestive) heart failure (HCC) Sinus pause Procedures ECHO ECHO TTHRC R-T 2D W/WOM-MODE COMPL SPEC&COLR D Han Sadler MD [address] [place] [address] [address] Referral ID Status Reason Start Date Expiration Date Visits Requested Visits Authorized [id number] Pending Review Auto-Generat ed Referral 05/25/2022 05/25/2023 1 1 * Consult, Test, Treat (Routine) - Authorized Specialty Diagnoses / Procedures Referred By Contac t Referred To Contact Diagnoses Sinus pause Procedures CONSULT TO ELECTROPHYSIOLOGY OFFICE/OUTPATIENT [facility] MDM 60-74 MINUTES Han Sadler MD [address] [place] [address] Referral ID Status Reason Start Date Expiration Date Visits Requested Visits Authorized [id number] Authorized PCP Requested Referral 05/25/2022 05/25/2023 1 1 * Outpatient Procedure (Routine) - Pending Review Specialty Diagnoses / Procedures Referred By Contac t Referred To Contact [facility] Diagnoses Chronic systolic (congestive) heart failure (HCC) Procedures ECHO ECHO TTHRC R-T 2D W/WOM-MODE COMPL SPEC&COLR Han Oropeza MD [address] [place] [address] [place] [address] [place] [address] Referral ID Status Reason Start Date Expiration Date Visits Requested Visits Authorized [id number] Pending Review Auto-Generat ed Referral 05/25/2022 05/25/2023 1 1 [facility] Diagnostic Procedure Only (Routine) - Pending Review Specialty Diagnoses / Procedures Referred By Jimmy burger Referred To Contact XR IMAGING Diagnoses Right wrist pain Pain and swelling of right wrist Procedures XR WRIST GENERAL 3V PA/LAT/OBL RIGHT RADEX WRIST COMPLETE MINIMUM 3 VIEWS Sherif Nichols DO [address] [place] [address] Xr Imaging Referral ID Status Reason Start Date Expiration Date Visits Requested Visits Authorized [id number] Pending Review Auto-Generat ed Referral 07/06/2022 08/05/2023 1 1 [facility] Summary Purpose Family History No Family History Records FoundNo Family History Records Found Advance Directives Documents on File Type Date Recorded Patient Shuttle Van Driver Expl anation Advance Directive(s) 02/27/2020 8:10 AM Advance Directive(s) 02/27/2020 8:13 AM Advance Directive(s) 02/22/2020 10:16 AM Advance Directive(s) 02/22/2020 2:34 PM Documents on File Type Date Recorded Patient Shuttle Van Driver Expl anation Advance Directive(s) 02/27/2020 8:13 AM Documents on File Type Date Recorded Patient Shuttle Van Driver Expl anation Advance Directive(s) 02/27/2020 8:13 AM Reason for Referral Specialty Diagnoses / Procedures Referred By Contac t Referred To Contact Podiatry Diagnoses Gouty arthritis of right foot Procedures CONSULT TO PODIATRY OFFICE/OUTPATIENT NEW HIGH MDM 60-74 MINUTES Basilia Davis PA-C [address] [place] [address] Referral ID Status Reason Start Date Expiration Date Visits Requested Visits Authorized [id number] Pending Review PCP Requested Referral 03/23/2022 03/23/2023 1 1 Specialty Diagnoses / Procedures Referred By Contac t Referred To Contact Pain Management Diagnoses Arthritis of right wrist Procedures CONSULT TO PAIN MGT OFFICE/OUTPATIENT [facility] 60-74 MINUTES Basilia Davis PA-C [address] [place] [phone] Referral ID Status Reason Start Date Expiration Date Visits Requested Visits Authorized [id number] Authorized PCP Requested Referral 07/21/2022 07/21/2023 1 1 Specialty Diagnoses / Procedures Referred By Contac t Referred To Contact Diagnoses DDD (degenerative disc disease), cervical Chronic neck pain Procedures CONSULT TO PAIN MGT OFFICE/OUTPATIENT [facility] 60-74 MINUTES Basilia Davis PA-C [address] [place] [address] Referral ID Status Reason Start Date Expiration Date Visits Requested Visits Authorized [id number] Authorized PCP Requested Referral 08/05/2022 08/05/2023 1 1 Additional Source Comments (unrecognized sect ion and content) No Status Records FoundNo Status Records Found INFORMATION SOURCE (unrecogn ized section and content) DATE CREATED AUTHOR AUTHOR'S ORGANIZ ATION 06/28/2023 [facility] Source Comments (unrecognize d section and content) In the event this informatio n is protected by the Federal Confidentiality of Alcohol and Drug Abuse Patient Records regulations: The Federal rules restrict any use of the information to criminally investigate or prosecute any alcohol or drug abuse patient.[facility] event this information is protected by the Federal Confidentiality of Alcohol and Drug Abuse Patient Records regulations: The Federal rules restrict any use of the information to criminally investigate or prosecute any alcohol or drug abuse patient.[facility] the event this information is protected by the Federal Confidentiality of Alcohol and Drug Abuse Patient Records regulations: The Federal rules restrict any use of the information to criminally investigate or prosecute any alcohol or drug abuse patient.[facility] the event this information is protected by the Federal Confidentiality of Alcohol and Drug Abuse Patient Records regulations: The Federal rules restrict any use of the information to criminally investigate or prosecute any alcohol or drug abuse patient.[facility] the event this information is protected by the Federal Confidentiality of Alcohol and Drug Abuse Patient Records regulations: The Federal rules restrict any use of the information to criminally investigate or prosecute any alcohol or drug abuse patient.[facility]ronIn the event this information is protected by the Federal Confidentiality of Alcohol and Drug Abuse Patient Records regulations: The Federal rules restrict any use of the information to criminally investigate or prosecute any alcohol or drug abuse patient.[facility]ronIn the event this information is protected by the Federal Confidentiality of Alcohol and Drug Abuse Patient Records regulations: The Federal rules restrict any use of the information to criminally investigate or prosecute any alcohol or drug abuse patient.[facility]ronIn the event this information is protected by the Federal Confidentiality of Alcohol and Drug Abuse Patient Records regulations: The Federal rules restrict any use of the information to criminally investigate or prosecute any alcohol or drug abuse patient.[facility]ronIn the event this information is protected by the Federal Confidentiality of Alcohol and Drug Abuse Patient Records regulations: The Federal rules restrict any use of the information to criminally investigate or prosecute any alcohol or drug abuse patient.[facility]ronIn the event this information is protected by the Federal Confidentiality of Alcohol and Drug Abuse Patient Records regulations: The Federal rules restrict any use of the information to criminally investigate or prosecute any alcohol or drug abuse patient.[facility]ronIn the event this information is protected by the Federal Confidentiality of Alcohol and Drug Abuse Patient Records regulations: The Federal rules restrict any use of the information to criminally investigate or prosecute any alcohol or drug abuse patient.[facility]ronIn the event this information is protected by the Federal Confidentiality of Alcohol and Drug Abuse Patient Records regulations: The Federal rules restrict any use of the information to criminally investigate or prosecute any alcohol or drug abuse patient.[facility]ronIn the event this information is protected by the Federal Confidentiality of Alcohol and Drug Abuse Patient Records regulations: The Federal rules restrict any use of the information to criminally investigate or prosecute any alcohol or drug abuse patient.[facility]ronIn the event this information is protected by the Federal Confidentiality of Alcohol and Drug Abuse Patient Records regulations: The Federal rules restrict any use of the information to criminally investigate or prosecute any alcohol or drug abuse patient.[facility]ronIn the event this information is protected by the Federal Confidentiality of Alcohol and Drug Abuse Patient Records regulations: The Federal rules restrict any use of the information to criminally investigate or prosecute any alcohol or drug abuse patient.[facility]ronIn the event this information is protected by the Federal Confidentiality of Alcohol and Drug Abuse Patient Records regulations: The Federal rules restrict any use of the information to criminally investigate or prosecute any alcohol or drug abuse patient.[facility]ronIn the event this information is protected by the Federal Confidentiality of Alcohol and Drug Abuse Patient Records regulations: The Federal rules restrict any use of the information to criminally investigate or prosecute any alcohol or drug abuse patient.[facility]ronIn the event this information is protected by the Federal Confidentiality of Alcohol and Drug Abuse Patient Records regulations: The Federal rules restrict any use of the information to criminally investigate or prosecute any alcohol or drug abuse patient.[facility]ronIn the event this information is protected by the Federal Confidentiality of Alcohol and Drug Abuse Patient Records regulations: The Federal rules restrict any use of the information to criminally investigate or prosecute any alcohol or drug abuse patient.[facility]ronIn the event this information is protected by the Federal Confidentiality of Alcohol and Drug Abuse Patient Records regulations: The Federal rules restrict any use of the information to criminally investigate or prosecute any alcohol or drug abuse patient.[facility]ronIn the event this information is protected by the Federal Confidentiality of Alcohol and Drug Abuse Patient Records regulations: The Federal rules restrict any use of the information to criminally investigate or prosecute any alcohol or drug abuse patient.[facility]ronIn the event this information is protected by the Federal Confidentiality of Alcohol and Drug Abuse Patient Records regulations: The Federal rules restrict any use of the information to criminally investigate or prosecute any alcohol or drug abuse patient.[facility]ronIn the event this information is protected by the Federal Confidentiality of Alcohol and Drug Abuse Patient Records regulations: The Federal rules restrict any use of the information to criminally investigate or prosecute any alcohol or drug abuse patient.[facility]ronIn the event this information is protected by the Federal Confidentiality of Alcohol and Drug Abuse Patient Records regulations: The Federal rules restrict any use of the information to criminally investigate or prosecute any alcohol or drug abuse patient.[facility]ronIn the event this information is protected by the Federal Confidentiality of Alcohol and Drug Abuse Patient Records regulations: The Federal rules restrict any use of the information to criminally investigate or prosecute any alcohol or drug abuse patient.[facility]ronIn the event this information is protected by the Federal Confidentiality of Alcohol and Drug Abuse Patient Records regulations: The Federal rules restrict any use of the information to criminally investigate or prosecute any alcohol or drug abuse patient.[facility]ronIn the event this information is protected by the Federal Confidentiality of Alcohol and Drug Abuse Patient Records regulations: The Federal rules restrict any use of the information to criminally investigate or prosecute any alcohol or drug abuse patient.[facility]ronIn the event this information is protected by the Federal Confidentiality of Alcohol and Drug Abuse Patient Records regulations: The Federal rules restrict any use of the information to criminally investigate or prosecute any alcohol or drug abuse patient.[facility]ronIn the event this information is protected by the Federal Confidentiality of Alcohol and Drug Abuse Patient Records regulations: The Federal rules restrict any use of the information to criminally investigate or prosecute any alcohol or drug abuse patient.[facility]ronIn the event this information is protected by the Federal Confidentiality of Alcohol and Drug Abuse Patient Records regulations: The Federal rules restrict any use of the information to criminally investigate or prosecute any alcohol or drug abuse patient.[facility]ronIn the event this information is protected by the Federal Confidentiality of Alcohol and Drug Abuse Patient Records regulations: The Federal rules restrict any use of the information to criminally investigate or prosecute any alcohol or drug abuse patient.[facility]ronIn the event this information is protected by the Federal Confidentiality of Alcohol and Drug Abuse Patient Records regulations: The Federal rules restrict any use of the information to criminally investigate or prosecute any alcohol or drug abuse patient.[facility] Reason for Visit (unrecogniz ed section and [...] W/WOM-MODE COMPL SPEC&COLR D Han Sadler MD [address] [place] [address] [facility] [address] [address] Referral ID Status Reason Start Date Expiration Date V isits Requested Visits Authorized [id number] Closed Auto-Generate d Referral 01/29/2022 01/29/2023 1 1 Reason Onset Date Comments Refill Request 05/26/2022 Reason Comments Consult Reason Comments Forms Reason Comments Opened In Error Specialty Diagnoses / Procedures Referred By Contac t Referred To Contact Diagnoses Sinus pause Procedures CONSULT TO ELECTROPHYSIOLOGY OFFICE/OUTPATIENT [facility] MDM 60-74 MINUTES Han Sadler MD [address] [place] [address] Referral ID Status Reason Start Date Expiration Date V isits Requested Visits Authorized [id number] Closed PCP Requested Referral 05/25/2022 05/25/2023 1 1 Reason Comments Orders Reason Comments Results Reason Comments Orders Reason Comments Yearly Exam Reason Comments [facility] requesting records Reason Comments Referral Status Call Care Teams (unrecognized sec tion and content) [employer] Quality Inspector Relationship Specialty Start Date End Date Basilia Davis PA-C [address] [place] [address] PCP - General Family Practice 10/15/16 Corey Walters [address] [address] Referring Cardiology 04/05/19 Han Sadler MD [address] [place] [address] Primary Staff Physician Cardiology 10/30/19 [employer] Quality Inspector Relationship Specialty Start Date End Date Basilia Davis PA-C [address] [place] [address] PCP - General Family Practice 10/15/16 [facility] Corey Jadiel [address] [place] [address] Referring Cardiology 04/05/19 Han Sadler MD [address] [place] [address] Primary Staff Physician Cardiology 10/30/19 [employer] Quality Inspector Relationship Specialty Start Date End Date Basilia Davis PA-C [address] [place] [address] PCP - General Family Practice 10/15/16 [facility] Corey Jadiel [address] [place] [address] Referring Cardiology 04/05/19 Han Sadler MD [address] [place] [address] Primary Staff Physician Cardiology 10/30/19 [employer] Quality Inspector Relationship Specialty Start Date End Date Basilia Davis PA-C [address] [place] [address] PCP - General Family Medicine 10/15/16 [facility] Corey Jadiel [address] [place] [address] Referring Cardiology 04/05/19 Han Sadler MD [address] [place] [address] Primary Staff Physician Cardiology 10/30/19 [employer] Quality Inspector Relationship Specialty Start Date End Date Basilia Davis PA-C [address] [place] [address] PCP - General Family Medicine 10/15/16 [facility] Corey Jadiel [address] [place] [address] Referring Cardiology 04/05/19 Han Sadler MD [address] [place] [address] Primary Staff Physician Cardiology 10/30/19 [employer] Quality Inspector Relationship Specialty Start Date End Date Basilia Davis PA-C [address] [place] [address] PCP - General Family Medicine 10/15/16 [facility] Corey Jadiel [address] [place] [address] Referring Cardiology 04/05/19 Han Sadler MD [address] [place] [address] Primary Staff Physician Cardiology 10/30/19 [employer] Quality Inspector Relationship Specialty Start Date End Date Basilia Davis PA-C [address] [place] [address] PCP - General Family Medicine 10/15/16 [facility], Corey Jadiel [address] [place] [address] Referring Cardiology 04/05/19 Han Sadler MD [address] [place] [address] Primary Staff Physician Cardiology 10/30/19 [employer] Quality Inspector Relationship Specialty Start Date End Date Basilia Davis PA-C [address] [place] [address] PCP - General Family Medicine 10/15/16 [facility], Corey Jadiel [address] [place] [address] Referring Cardiology 04/05/19 Han Sadler MD [address] [place] [address] Primary Staff Physician Cardiology 10/30/19 [employer] Quality Inspector Relationship Specialty Start Date End Date Basilia Davis PA-C [address] [place] [address] PCP - General Family Medicine 10/15/16 [facility] [address] [place] [address] [place] [address] Referring Cardiology 04/05/19 Han Sadler MD [address] [place] [address] Primary Staff Physician Cardiology 10/30/19 [employer] Quality Inspector Relationship Specialty Start Date End Date Basilia Davis PA-C [address] [place] [address] PCP - General Family Medicine 10/15/16 [facility] [address] [place] [address] [place] [address] Referring Cardiology 04/05/19 Han Sadler MD [address] [place] [address] Primary Staff Physician Cardiology 10/30/19 [employer] Quality Inspector Relationship Specialty Start Date End Date Basilia Davis PA-C [address] [place] [address] PCP - General Family Medicine 10/15/16 [facility], [facility] [address] [place] [address] Referring Cardiology 04/05/19 Han Sadler MD [address] [place] [address] Primary Staff Physician Cardiology 10/30/19 [employer] Quality Inspector Relationship Specialty Start Date End Date Basilia Davis PA-C [address] [place] [address] PCP - General Family Medicine 10/15/16 [facility] Corey Jadiel [address] [place] [address] Referring Cardiology 04/05/19 Han Sadler MD [address] [place] [address] Primary Staff Physician Cardiology 10/30/19 [employer] Quality Inspector Relationship Specialty Start Date End Date Basilia Davis PA-C [address] [place] [address] PCP - General Family Medicine 10/15/16 [facility] Corey Jadiel [address] [place] [address] Referring Cardiology 04/05/19 Han Sadler MD [address] [place] [address] Primary Staff Physician Cardiology 10/30/19 [employer] Quality Inspector Relationship Specialty Start Date End Date Basilia Davis PA-C [address] [place] [address] PCP - General Family Medicine 10/15/16 [facility], Corey Jadiel [address] [place] [address] Referring Cardiology 04/05/19 Han Sadler MD [address] [place] [address] Primary Staff Physician Cardiology 10/30/19 [employer] Quality Inspector Relationship Specialty Start Date End Date Basilia Davis PA-C [address] [place] [address] PCP - General Family Medicine 10/15/16 [facility] [address] [place] [address] Referring Cardiology 04/05/19 Han Sadler MD [address] [place] [address] Primary Staff Physician Cardiology 10/30/19 [employer] Quality Inspector Relationship Specialty Start Date End Date Basilia Davis PA-C [address] [place] [address] PCP - General Family Medicine 10/15/16 [facility] [address] [place] [address] Referring Cardiology 04/05/19 Han Sadler MD [address] [place] [address] Primary Staff Physician Cardiology 10/30/19 [employer] Quality Inspector Relationship Specialty Start Date End Date Basilia Davis PA-C [address] [place] [address] PCP - General Family Medicine 10/15/16 [facility] [address] [place] [address] Referring Cardiology 04/05/19 Han Sadler MD [address] [place] [address] Primary Staff Physician Cardiology 10/30/19 [employer] Quality Inspector Relationship Specialty Start Date End Date Basilia Davis PA-C [address] [place] [address] PCP - General Family Medicine 10/15/16 Corey Walters [address] [place] [address] Referring Cardiology 04/05/19 Han Sadler MD [address] [place] [address] Primary Staff Physician Cardiology 10/30/19 [employer] Quality Inspector Relationship Specialty Start Date End Date Basilia Davis PA-C [address] [place] [address] PCP - General Family Medicine 10/15/16 [address] [facility] [address] [place] [address] Referring Cardiology 04/05/19 Han Sadler MD [address] [place] [address] Primary Staff Physician Cardiology 10/30/19 [employer] Quality Inspector Relationship Specialty Start Date End Date Basilia Davis PA-C [address] [place] [address] PCP - General Family Medicine 10/15/16 Corey Walters MD [address] [place] [address] Referring Cardiology 04/05/19 Han Sadler MD [address] [place] [address] Primary Staff Physician Cardiology 10/30/19 [employer] Quality Inspector Relationship Specialty Start Date End Date Basilia Davis PA-C [address] [place] [address] PCP - General Family Medicine 10/15/16 Corey Walters MD [address] [place] [address] Referring Cardiology 04/05/19 Han Sadler MD [address] [place] [address] Primary Staff Physician Cardiology 10/30/19 [employer] Quality Inspector Relationship Specialty Start Date End Date Basilia Davis PA-C [address] [place] [address] PCP - General Family Medicine 10/15/16 Corey Walters MD [address] [address] Referring Cardiology 04/05/19 Han Sadler MD [address] [place] [address] Primary Staff Physician Cardiology 10/30/19 [employer] Quality Inspector Relationship Specialty Start Date End Date Basilia Davis PA-C [address] [place] [address] PCP - General Family Medicine 10/15/16 Corey Walters MD [address] [facility] [address] [place] [address] Referring Cardiology 04/05/19 Han Sadler MD [address] [place] [address] Primary Staff Physician Cardiology 10/30/19 [employer] Quality Inspector Relationship Specialty Start Date End Date Basilia Davis PA-C [address] [place] [address] PCP - General Family Medicine 10/15/16 Corey Walters MD [address] [address] Referring Cardiology 04/05/19 Han Sadler MD [address] [place] [address] Primary Staff Physician Cardiology 10/30/19 FOR RECORDS [...] BE BASED ON THE PRIMARY CLINICAL RECORDS. [facility]. provides no warranty or guarantee of the accuracy or completeness of information in this document.
[2023-07-21] MEDS: Zolpidem Tartrate 5 MG Tablet PO (21:30)
== END | disposition home or self-care (01) ==
LOC: SL 20:24
PROVIDERS: PCP Family Medicine; Referring Provider Physician Assistant; Visit Provider Physician Assistant
DX: G47.33 Obstructive sleep apnea (adult) (pediatric) (principal)
CPT/HCPCS: 95811

== ENCOUNTER → 2023-08-01 | Outpatient (CLI) | payer MEDICARE, BC, SELFPAY | END | disposition home or self-care (01) | LOC: SL 07:58 | PROVIDERS: PCP Family Medicine; Visit Provider Physician Assistant | DX: Z46.89 Encounter for fitting and adjustment of other specified devices (principal) ==

== ENCOUNTER → 2024-04-03 | Outpatient (CLI) | payer MEDICARE, BC, SELFPAY ==
[2024-04-03 08:59] LABS: Absolute Lymphocyte Count 0.88 X10^3/uL (0.83-4.51); Absolute Neutrophil Count 4.1 X10^3/uL (2.0-7.7); Basophil# 0.05 X10^3/uL; Basophil% 0.9 % (0-1); Eosinophil# 0.23 X10^3/uL; Hematocrit 42.9 % (40-54); Hemoglobin 14.2 g/dL (13.0-16.5); Lymphocyte # 0.88 X10^3/ul (0.83-4.51); Lymphocyte % 15.3 % (19-41); Mean Corp Hgb Conc 33.1 g/dL (32-36); Mean Corpuscular Hgb 30.8 pg (27.0-32.0); Mean Corpuscular Volume 93.1 fL (80-94); Mean Platelet Vol. 9.8 fl (6.2-12.0); Monocyte# 0.51 X10^3/uL; Monocyte% 8.8 % (0-10); NRBC Flagged by Analyzer 0 % (0-5); Neutrophil # 4.08 X10^3/uL (2.7-7.7); Neutrophil % 70.7 % (47-70); Platelet Count 211 K/mm3 (150-450); RBC Distribution Width CV 13.2 % (11.6-14.6); Red Blood Count 4.61 M/mm3 (4.6-6.2); White Blood Count 5.8 K/mm3 (4.4-11.0)
[2024-04-03 09:28] LABS: Vitamin B12 478 pg/mL (211-911); Vitamin D,25 Hydroxy 39.3 ng/mL
[2024-04-03 09:33] LABS: ALB/GLOB Ratio 1.2 RATIO (0.9-2.4); AST(SGOT) 26 U/L (15-37); Alanine Aminotransfer ALT/SGPT 36 U/L (16-61); Alkaline Phosphatase 43 U/L (45-117); Anion Gap 3 (5-15); BUN 14 mg/dL (7-18); BUN/Creat Ratio 16.6 RATIO (10-20); CRP < 2.90 mg/L (0.0-3.0); Chloride 106 mmol/L (98-107); Cholesterol 174 mg/dL (200); Creatinine, Serum 0.84 mg/dL (0.70-1.30); EST Glomerular Filtration Rate 97 mL/min (>60); Est Glom Filt Rate - Afr Amer 117 mL/min (>60); Globulin 3.2 g/dL (2.2-4.2); Glucose 121 mg/dL (74-106); High Density Lipoprotein 45 mg/dL; Magnesium 2.4 mg/dL (1.6-2.6); PSA,Total - Annual Screen 1.81 ng/mL (0.00-4.00); Protein, Total 7.2 g/dL (6.4-8.2); Sodium Level 138 mmol/L (136-145); Triglycerides 118 mg/dL; Very Low Density Lipoprotein 24 mg/dL (5-40)
[2024-04-03 09:48] LABS: Hemoglobin A1c 5.8 % (3.8-5.6)
== END | disposition home or self-care (01) ==
LOC: LAB 08:06
PROVIDERS: PCP Family Medicine; Referring Provider Nurse Practitioner Family; Visit Provider Nurse Practitioner Family
DX: E78.1 Pure hyperglyceridemia (principal); I48.0 Paroxysmal atrial fibrillation; R73.9 Hyperglycemia, unspecified; E55.9 Vitamin D deficiency, unspecified; Z12.5 Encounter for screening for malignant neoplasm of prostate
CPT/HCPCS: 36415; 80053; 80061; 82306; 82607; 83036; 83735; 84153; 85025; 86140; G0103

== ENCOUNTER 2024-12-14 09:03 | Emergency (ER) | payer MEDICARE, BC, SELFPAY ==
[2024-12-14 09:04] VITALS: BP 133/86; PULSE 71; RESP 16; TEMP 36.6; O2SAT 98; BMI 25.1
--- NOTE | 2024-12-14 10:07 | EX.ED.GENINJ ---
HPI History of Present Illness Chief Complaint: Laceration Narrative Narrative: Patient is a 69-year-old male past medical history of hyperlipidemia who presents to the emergency department the chief complaint of cut to hand. Patient states that this morning he was using a salt to cut since done the salt broke and bounced up and hit his hands on each side. He states his last tetanus shot was in 2022. [facility] Medical History Hyperlipidemia Home Medications ?Medication ?Instructions ?Recorded ?Last Taken ?Type aspirin 81 mg tablet,delayed 81 mg PO DAILY@0800 12/30/16 Unknown History release calcium 500 mg (as carbonate)-vit 1 ea PO DAILY 12/30/16 Unknown History D3 10 mcg (400 unit) chewable tablet (Calcium 500 + D) losartan 100 mg tablet 100 mg PO QHS 12/30/16 Unknown History pyridoxine (vitamin B6) 100 mg 100 mg PO DAILY 12/30/16 Unknown History tablet sertraline 50 mg tablet (Zoloft) 50 mg PO QHS 12/30/16 Unknown History cephalexin 500 mg capsule 500 mg PO BID 7 days #14 caps 12/14/24 Unknown Rx Allergy/AdvReac Type Severity Reaction Status Date / Time Sulfa (Sulfonamide Allergy Unknown Verified 12/14/24 09:17 Antibiotics) Surgical History History of open heart surgery Social History Smoking Status: Never smoker ROS ROS ED ROS Narrative Neurological: Denies numbness, wheeze, tingling Musculoskeletal: Complains of hand pain underside Skin: Complains of cuts to the left index finger and middle finger as noted above EXAM Physical Exam Narrative Exam Narrative: General: Patient is lying in bed rest comfortably did not appear to be acute distress Head: Atraumatic, normocephalic Eyes: PERRL bilaterally, EOMI bilateral, no conjunctival injection noted Neck: Soft, supple, trachea midline Cardiovascular: Regular rate Extremities: +5/5 strength noted in the bilateral lower extremities, radial pulses +2/4 in the bilateral extremities, patient is able giving okay sign thumbs up sign and oppose his thumb to his pinkies bilaterally without any difficulty Neurological: Patient follow commands knew that he was at [facility] year is 2024. Sensation grossly intact in the median, ulnar and radial nerve distribution bilaterally Skin: Patient has complex laceration to the left index finger just proximal to the nailbed, simple linear laceration to the index finger on the radial side, patient has abrasions noted superficially to the right index finger Const Vital Signs: 12/14/24 09:04 12/14/24 11:03 Temperature 97.9 F Temperature Source Oral Pulse Rate 71 63 Respiratory Rate 16 17 Blood Pressure 133/86 H 138/73 H Blood Pressure Mean 101 94 Pulse Ox 98 100 Oxygen Delivery Method Room Air Room Air MDM MDM MDM Narrative Medical decision making narrative: Patient is a 69-year-old male who presented to the emergency department chief complaint of lacerations to his hand and fingers as noted above. On the differential diagnosis includes but not limited to nailbed injury, simple lacerations, fracture. Once workup is obtained and reviewed he will be reevaluated. Once again the patient's vaccines specifically tetanus is up-to-date Patient's bilateral hand x-rays reviewed by myself and by radiology. Patient's right hand showed no acute fracture or suspicious osseous lesion. There is evidence of an old on united ulnar styloid fracture. Arthritic narrowing of the radial scaphoid joint space at the base of the thumb as well as narrowing of the PIP and DIP joints. No specific soft tissue swelling or foreign body. Patient's left hand x-ray reviewed by myself by radiology showed acute vertical fracture of the proximal aspect of the distal phalanx of the index finger with associated soft tissue swelling seen best on the oblique and lateral views. No other demonstrate fracture. Surgical hardware in the distal radius free of complication. Discussed the case with on-call plastic surgeon and he came down and evaluate the patient at bedside he repaired the patient's lacerations on his left hand and states that he will follow-up with him in the outpatient setting. Patient did receive 2 g of IV Ancef here in the emergency department. Patient will be given prescription for Keflex. Patient was advised to watch out for signs of infection and return with worsening symptoms or any concerns. He is agreeable to plan all course concerns answered he is discharged home in stable condition. 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 Widening of the scapholunate joint space suggest ligamentous injury which may be chronic Old ununited ulnar styloid fracture Reading Location: [facility] Discharge Plan Triage Chief Complaint: Laceration ED Provider: Richard Valles Dx/Rx/DC Orders Clinical Impression: Fracture of distal phalanx of finger, Laceration of finger, index, Laceration of finger, middle, Abrasion of right index finger Prescriptions: New cephalexin 500 mg capsule 500 mg PO BID 7 Days Qty: 14 0RF No Action aspirin 81 MG tablet 81 mg PO DAILY@0800 pyridoxine (vitamin B6) 100 MG tablet 100 mg PO DAILY losartan 100 MG tablet 100 mg PO QHS sertraline [Zoloft] 50 MG tablet 50 mg PO QHS calcium carbonate-vitamin D3 [Calcium 500 + D] 1 EACH tablet,chewable 1 ea PO DAILY Primary Care Provider: Wei Scruggs Referrals: Wei Scruggs MD [Primary Care Provider] - David Can MD [Med Staff - Active Staff] - Activity Restrictions/Additional Instructions: Follow-up with Dr. Can in the outpatient setting. Take antibiotics that are sent to your pharmacy as prescribed. Return with worsening symptoms or other concerns. Watch out for signs of infection such as whole finger swelling redness purulent drainage coming from the wound if this is to occur you should return to the emergency department immediately. Rotate Tylenol and I Profen [id number] for pain control when you do that she can take something every 3 hours max dose Tylenol in 24 hours 4000 mg max dose of ibuprofen in 24 hours 3200 mg. Print Language: Croatian Disposition Disposition: Home, Self Care
--- NOTE | 2024-12-14 10:30 | RAD_ITS ---
PROCEDURE: HAND MIN 3 VIEWS 12/14/2024 REASON FOR EXAM: Pain after trauma TECHNIQUE: HAND MIN 3 VIEWS COMPARISON: None FINDINGS: No demonstrated acute fracture or suspicious osseous lesion. There is evidence of an old ununited ulnar styloid fracture. Arthritic narrowing of the radioscaphoid joint space and at the base of the thumb as well as narrowing of the PIP and DIP joints. There is abnormal widening of the scapholunate space suggesting ligamentous injury which may be chronic. 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
--- NOTE | 2024-12-14 10:30 | RAD_ITS ---
PROCEDURE: HAND MIN 3 VIEWS 12/14/2024 REASON FOR EXAM: LEFT INDEX AND MIDDLE FINGER INJURY, RIGHT INDEX TECHNIQUE: HAND MIN 4 VIEWS COMPARISON: None FINDINGS: There is an acute, vertical fracture in the proximal aspect of the distal phalanx of the index finger with associated soft tissue swelling seen best on the oblique and lateral views. Joint spaces well-preserved. No other demonstrated fracture. Surgical hardware in the distal radius free of complication RAD/Hand Min 3 Views IMPRESSION: Acute, nondisplaced vertical fracture of the proximal aspect of the distal phal anx of the index finger with soft tissue swelling Reading Location: [id number]
[2024-12-14] MEDS: 0.9% Normal Saline (1000mL) 1,000 ML 999 ML IV (10:53)
[2024-12-14] MEDS: Cefazolin 2 GM in 0.9% Normal Saline (100mL Bag) 100 ML IV (10:59)
[2024-12-14 11:03] VITALS: BP 138/73; PULSE 63; RESP 17; O2SAT 100
--- NOTE | 2024-12-14 11:25 | CON.PCM.SX_ITS ---
HPI Consult Data Date of Consult: 12/14/24 HPI Narrative HPI Narrative: RADHA IBRAHIM, is a 69 M who presents [facility] Medical History Hyperlipidemia Home Medications ?Medication ?Instructions ?Recorded ?Last Taken ?Type aspirin 81 mg tablet,delayed 81 mg PO DAILY@0800 12/30 Unknown History release calcium 500 mg (as carbonate)-vit 1 ea PO DAILY Unknown History D3 10 mcg (400 unit) chewable tablet (Calcium 500 + D) losartan 100 mg tablet 100 mg PO QHS 12/30/16 Unkno wn History pyridoxine (vitamin B6) 100 mg 100 mg PO DAILY 7 Unknown History tablet sertraline 50 mg tablet (Zoloft) 50 mg PO QHS 12/30/16 Unknown History cephalexin 500 mg capsule 500 mg PO BID 7 days #14 cap s 12/14/24 Unknown Rx Allergy/AdvReac Type Severity Reaction Status Date / Time Sulfa (Sulfonamide Allergy Unknown Verified 12/14/24 09:17 Antibiotics) Surgical History History of open heart surgery Social History Smoking Status: Never smoker Imaging Radiology Impression Hand X-Ray 12/14/24 10:30 IMPRESSION: Acute, nondisplaced vertical fracture of the proximal aspect of the distal phalanx of the index finger with soft tissue swelling Reading Location: [facility] Hand X-Ray 12/14/24 10:30 IMPRESSION: No demonstrated acute fracture or suspicious osseous lesion 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
--- NOTE | 2024-12-14 11:25 | PCM.OPRPT ---
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 Presents today for washout and closure. Seizure details: Patient was prepped and draped in sterile fashion in the emergency department. Anesthesia was given (local as noted above, and it was given time to take effect). Copious amounts of normal saline were used to irrigate the index finger and long finger lacerations and washed out any debris (500 cc of normal saline). The terminal slip was at the base of the index finger wound and there was no exposed bone. The wounds were then closed for a total simple repair of the lacerations of 2 cm using interrupted 4-0 nylon suture. Xeroform Mariah and Coban were applied loosely, with an AlumaFoam splint to the index finger for the underlying distal phalanx base fracture. Patient tolerated the procedure well. Postoperative plan: Follow-up with me in clinic in 3 days to assess the viability of the dorsal index finger soft tissue and for wound check overall. Surgical Findings: This was not an open fracture and there was no fracture at the base of the wound Complications Complications: No
[2024-12-14 12:56] VITALS: BP 131/77; PULSE 68; RESP 18; TEMP 36.7; O2SAT 100
[2024-12-14] MEDS: Lidocaine 1% (20 ml mdv) 20 ML Vial 10 ML INFILT (12:56)
== END 2024-12-14 12:57 | disposition home or self-care (01) ==
PROVIDERS: Emergency Provider Emergency Medicine; PCP Family Medicine; Visit Provider Emergency Medicine
DX: S61.210A Laceration without foreign body of right index finger without damage to nail, initial encounter (principal); E78.5 Hyperlipidemia, unspecified; W23.0XXA Caught, crushed, jammed, or pinched between moving objects, initial encounter; S61.212A Laceration without foreign body of right middle finger without damage to nail, initial encounter; S62.661A Nondisplaced fracture of distal phalanx of left index finger, initial encounter for closed fracture; Y93.89 Activity, other specified; S60.410A Abrasion of right index finger, initial encounter
CPT/HCPCS: 12001; 73130; 96360; 96361; 99283; A4216